=== PATIENT | male | born 1950 | race Caucasian/White ===

== ENCOUNTER 2016-10-08 09:12 | Observation (INO) | payer MEDICARE, BC ==
[2016-10-07 11:10] LABS: BLOOD UREA NITROGEN 32 mg/dL (7-18)
[~2016-10-08] VITALS: Ht 177.8 cm; Wt 104.2 kg
[~2016-10-08 09:12] MED LIST: AMLO10TA2 PO; ASPI-650 PO; ATOR40TA78 PO; GEMF600T3 PO; GLIP10TA13 PO; LOSA100T6 PO; METF10002 PO; MULT-658 PO; OMEP-110 PO; PROP40TA PO
[2016-10-08] MEDS ORDERED: SODIUM CHLORIDE 0.9% 1,000 ML IV ONE (09:45)
[2016-10-08 10:44] LABS: BLOOD UREA NITROGEN 27 mg/dL (7-18)
[2016-10-08] MEDS ORDERED: LIDOCAINE 2%, 20ML ONE ×2 (13:11→14:42)
[2016-10-08] MEDS ORDERED: BIVALIRUDIN 250 MG ONE ×2 (13:11→14:42)
[2016-10-08] MEDS ORDERED: VERAPAMIL 2.5 MG/ML, 2ML ONE ×2 (13:11→14:41)
[2016-10-08] MEDS ORDERED: HEPARIN 1,000 UNITS/ML, 10ML ONE ×2 (13:11→14:42)
[2016-10-08] MEDS ORDERED: FENTANYL PF 100 MCG/2ML ONE ×2 (13:11→14:41)
[2016-10-08] MEDS ORDERED: TICAGRELOR 90 MG TABLET ONE ×2 (13:11→14:41)
[2016-10-08] MEDS ORDERED: MIDAZOLAM 1 MG/ML, 5ML ONE ×2 (13:11→14:41)
[2016-10-08 19:09] VITALS: BP 183/74
[2016-10-08] MEDS: AMLODIPINE 5 MG TABLET PO SCH (20:20)
[2016-10-08] MEDS: TICAGRELOR 90 MG TABLET PO SCH (20:20)
[2016-10-08] MEDS: PROPRANOLOL 40 MG TABLET PO SCH (20:20)
[2016-10-08] MEDS: GEMFIBROZIL 600 MG TABLET PO SCH (20:20)
[2016-10-08 20:28] VITALS: BP 146/78
[2016-10-08] MEDS ORDERED: ATORVASTATIN 40 MG TABLET PO SCH (21:00)
[2016-10-09 01:57] VITALS: BP 147/75
[2016-10-09 05:25] LABS: BLOOD UREA NITROGEN 24 mg/dL (7-18)
[2016-10-09 07:23] VITALS: BP 145/76
[2016-10-09] MEDS ORDERED: OMEPRAZOLE 20 MG CAPSULE.DR PO SCH (07:30)
[2016-10-09] MEDS ORDERED: metFORMIN 500 MG TABLET PO SCH (08:00)
[2016-10-09] MEDS: TICAGRELOR 90 MG TABLET PO SCH (08:09)
[2016-10-09] MEDS: GEMFIBROZIL 600 MG TABLET PO SCH (08:09)
[2016-10-09] MEDS: PROPRANOLOL 40 MG TABLET PO SCH (08:10)
[2016-10-09] MEDS: AMLODIPINE 5 MG TABLET PO SCH (08:10)
[2016-10-09] MEDS ORDERED: MULTIVITAMIN 1 TABLET PO SCH (09:00)
[2016-10-09] MEDS ORDERED: LOSARTAN 50MG TABLET PO SCH (09:00)
[2016-10-09] MEDS ORDERED: ISOSORBIDE MONONITRATE ER 30 MG TABLET PO SCH (09:00)
[2016-10-09] MEDS ORDERED: ASPIRIN 81 MG TABLET EC PO SCH (09:00)
[2016-10-09] MEDS ORDERED: ASPI-621 PO (09:40)
[2016-10-09] MEDS ORDERED: TICA90TA PO (09:40)
== END 2016-10-09 11:20 | disposition home or self-care (01) ==
LOC: CACL 09:12 → 5SO 17:30 → CACL 22:21 → INTOOBSV 22:22 → 5SO 22:22 → UNDODISIN 10-09 11:20
PROVIDERS: ADMIT Internal Medicine Cardiovascular Disease; ATTEND Internal Medicine Cardiovascular Disease
DX: I25.119 Atherosclerotic heart disease of native coronary artery with unspecified angina pectoris (principal); I10 Essential (primary) hypertension; E11.9 Type 2 diabetes mellitus without complications; E78.5 Hyperlipidemia, unspecified; Z95.5 Presence of coronary angioplasty implant and graft
CPT/HCPCS: 36415; 71020; 80048; 82040; 82962; 85014; 85018; 85025; 85610; 85730; 93005; 93458; 93571; 99156; 99157; C1725; C1769; C1874; C1887; C1894; C9600; G0378; J0583; J1644; J2250; J3010; J3490; Q9967

== ENCOUNTER 2018-01-20 08:00 | Outpatient (CLI) | payer MEDICARE, BC ==
[~2018-01-20 08:00] MED LIST changes: -AMLO10TA2 PO; +AMLO10TA6 PO; +ASPI-621 PO; -GEMF600T3 PO; +GEMF600T4 PO; -LOSA100T6 PO; +LOSA100T7 PO; +TICA90TA PO
[2018-01-20] MEDS ORDERED: PIOG30TA67 PO (14:46)
[2018-01-20] MEDS ORDERED: CHOL500015 PO (14:46)
[2018-01-20] MEDS ORDERED: NPH,100V5 SC (14:46)
[2018-01-20] MEDS ORDERED: CLOP75TA PO (14:46)
== END 2018-01-20 17:00 | disposition home or self-care (01) ==
LOC: CVU 08:00
PROVIDERS: ATTEND Thoracic Surgery (Cardiothoracic Vascular Surgery)
DX: Z01.818 Encounter for other preprocedural examination (principal); I25.10 Atherosclerotic heart disease of native coronary artery without angina pectoris; Z95.1 Presence of aortocoronary bypass graft
CPT/HCPCS: 93970

== ENCOUNTER 2018-01-23 03:29 | Inpatient (IN) | payer MEDICARE, BC ==
[2018-01-20 14:56] LABS: BASOPHILS # (AUTO) 0.02 x10^3/uL (0-0.1); BASOPHILS % (AUTO) 0 % (0-1); EOSINOPHILS # (AUTO) 0.06 x10^3/uL (0-0.4); EOSINOPHILS % (AUTO) 1 % (1-7); LYMPHOCYTES # (AUTO) 2.37 x10^3/uL (1-3.4); LYMPHOCYTES % (AUTO) 38 % (22-44); MD NO; MEAN CORPUSCULAR HGB CONC 31.4 g/dL (33.2-36.2); MEAN CORPUSCULAR VOLUME 73.2 fL (81-97); MEAN PLATELET VOLUME 8.4 fL (7.4-10.4); MONOCYTES # (AUTO) 0.45 x10^3/uL (0.2-0.8); MONOCYTES % (AUTO) 7 % (2-9); NEUTROPHILS # (AUTO) 3.41 x10^3/uL (1.8-6.8); NEUTROPHILS % (AUTO) 54 % (42-75); PLATELET COUNT 276 x10^3/uL (130-400); RED BLOOD COUNT 4.98 x10^6/uL (4.38-5.82); RED CELL DISTRIBUTION WIDTH 18.4 % (9.4-14.8)
[2018-01-20 15:08] LABS: ALBUMIN 3.5 g/dL (3.4-5.0); ANION GAP 7 mmol/L (5-15); CHLORIDE 108 mmol/L (98-107)
[2018-01-20 15:12] LABS: ALANINE AMINOTRANSFERASE 20 U/L (12-78); ALKALINE PHOSPHATASE 79 U/L (45-117); BILIRUBIN,TOTAL 0.3 mg/dL (0.2-1.0); CREATININE 1.91 mg/dL (0.7-1.3); TOTAL PROTEIN 8.4 g/dL (6.4-8.2)
[2018-01-20 15:13] LABS: MICROSCOPIC INDICATED
[2018-01-20 15:20] LABS: CULTURE INDICATED? NO
[2018-01-20 15:23] LABS: PROTHROMBIN TIME 10.3 Seconds (9.6-11.5)
[2018-01-20 15:25] LABS: HEMOGLOBIN A1C 7.9 % (4.2-6.3)
[~2018-01-23] VITALS: Ht 177.8 cm; Wt 100.9 kg
[~2018-01-23 03:29] MED LIST changes: +CHOL500015 PO; +CLOP75TA PO; +NPH,100V5 SC; +PIOG30TA67 PO
[2018-01-23] MEDS ORDERED: INSULIN LISPRO 100 UNITS/ML, PEN SQ-INSULIN SCH (04:00)
[2018-01-23] MEDS ORDERED: ALBUMIN HUMAN 5% 500 ML IV PRN (04:00)
[2018-01-23] MEDS ORDERED: CHLORHEXIDINE 15 ML UDC MM SCH (04:00)
[2018-01-23] MEDS ORDERED: ACETAMINOPHEN 325 MG TABLET PO PRN ×2 (04:00→12:00)
[2018-01-23 04:36] VITALS: BP_SYST 158; BP_SYST 174; BP_DIAS 86; BP_DIAS 89
[2018-01-23] MEDS ORDERED: METOPROLOL TARTRATE 25 MG TABLET PO ONE (05:00)
[2018-01-23] MEDS: MUPIROCIN OINT 2%, 22GM TP SCH ×2 (05:27→21:50)
[2018-01-23] MEDS: SODIUM CHLORIDE FLUSH 10ML SYR IVF SCH ×3 (05:27→22:10)
[2018-01-23] MEDS ORDERED: PAPAVERINE 30 MG/ML, 2ML ONE (06:43)
[2018-01-23] MEDS ORDERED: HEPARIN 1,000 UNITS/ML, 10ML ONE (06:43)
[2018-01-23 07:05] VITALS: BP 164/75
[2018-01-23] MEDS ORDERED: POTASSIUM CHLORIDE 80 MEQ, SODIUM BICARBONATE 8.4% 10 MEQ, MAGNESIUM SULFATE 0.5 GM, LI... IV PRN (07:30)
[2018-01-23] MEDS ORDERED: DEXMEDETOMIDINE 200 MCG in SODIUM CHLORIDE 0.9% 48 ML IV SCH (07:30)
[2018-01-23] MEDS ORDERED: MANNITOL PMX 20% 500 ML IVPB PRN (07:30)
[2018-01-23] MEDS ORDERED: PHENYLEPHRINE 10 MG in SODIUM CHLORIDE 0.9% 249 ML IV PRN ×2 (07:30→11:34)
[2018-01-23] MEDS ORDERED: EPINEPHRINE 2 MG in SODIUM CHLORIDE 0.9% 248 ML IV SCH (07:30)
[2018-01-23] MEDS ORDERED: REGULAR INSULIN 62.5 UNITS in SODIUM CHLORIDE 0.9% 249.375 ML IV PRN ×2 (07:30→11:34)
[2018-01-23] MEDS ORDERED: VANCOMYCIN 1,500 MG in SODIUM CHLORIDE 0.9% 250 ML IV PRN (07:30)
[2018-01-23] MEDS ORDERED: MIDAZOLAM 10MG/2 ML ONE (07:34)
[2018-01-23] MEDS ORDERED: SUFentanil 50 MCG/ML, 5ML ONE (07:34)
[2018-01-23] MEDS ORDERED: PROTAMINE SULFATE 10 MG/ML, 25ML ONE ×2 (08:53)
[2018-01-23] MEDS ORDERED: ROCURONIUM 10MG/ML,5ML ONE ×2 (08:53)
[2018-01-23] MEDS ORDERED: AMINOCAPROIC ACID 250 MG/ML, 20ML ONE ×2 (08:53)
[2018-01-23] MEDS ORDERED: VASOPRESSIN 20 UNIT/ML, 1ML ONE (08:53)
[2018-01-23] MEDS ORDERED: PROPOFOL 10 MG/ML, 20ML ONE (08:53)
[2018-01-23] MEDS ORDERED: HEPARIN 1,000 UNITS/ML, 30ML ONE (11:20)
[2018-01-23] MEDS ORDERED: SODIUM BICARB 8.4%, 50ML SYRINGE ONE (11:20)
[2018-01-23] MEDS ORDERED: LIDOCAINE 2% 100MG/5ML SYRINGE ONE (11:20)
[2018-01-23] MEDS ORDERED: ALBUMIN HUMAN 25% 50 ML ONE (11:20)
[2018-01-23] MEDS ORDERED: DOBUTAMINE 250 MG in SODIUM CHLORIDE 0.9% 230 ML IV PRN (11:34)
[2018-01-23] MEDS ORDERED: NITROGLYCERIN/D5W PMX 250 ML IV PRN (11:34)
[2018-01-23] MEDS ORDERED: SODIUM CHLORIDE 0.9% 1,000 ML IV PRN (11:34)
[2018-01-23] MEDS ORDERED: VASOPRESSIN 50 UNIT in SODIUM CHLORIDE 0.9% 247.5 ML IV PRN (11:34)
[2018-01-23] MEDS ORDERED: DEXMEDETOMIDINE 200 MCG in SODIUM CHLORIDE 0.9% 48 ML IV PRN (11:34)
[2018-01-23] MEDS ORDERED: DEXTROSE 50%, 50ML SYRINGE IVPush PRN (12:00)
[2018-01-23] MEDS ORDERED: GLUCAGON 1 MG IM PRN (12:00)
[2018-01-23] MEDS ORDERED: EPINEPHRINE 2 MG in SODIUM CHLORIDE 0.9% 248 ML IV PRN (12:00)
[2018-01-23] MEDS ORDERED: SODIUM BICARB 8.4%, 50ML SYRINGE IV PRN (12:00)
[2018-01-23] MEDS ORDERED: INSULIN REGULAR 100 UNITS/ML, 3ML VIAL IVPush PRN (12:00)
[2018-01-23] MEDS ORDERED: PROCHLORPERAZINE 5 MG/ML, 2ML IVPush PRN (12:00)
[2018-01-23] MEDS: KSCALE TO 4.5 IV SCH ×2 (12:00→18:00)
[2018-01-23] MEDS ORDERED: BISACODYL 10 MG SUPP PR PRN (12:00)
[2018-01-23] MEDS ORDERED: MIDAZOLAM 1 MG/ML, 5ML IVPush PRN (12:00)
[2018-01-23] MEDS ORDERED: LACTATED RINGERS 1,000 ML IV PRN (12:00)
[2018-01-23] MEDS ORDERED: ACETAMINOPHEN 650 MG SUPP PR PRN (12:00)
[2018-01-23] MEDS ORDERED: DEXTROSE 4 GM TAB.CHEW PO PRN (12:00)
[2018-01-23] MEDS ORDERED: BISACODYL 5 MG EC TABLET PO PRN (12:00)
[2018-01-23 12:03] LABS: GLUCOSE BY BLOOD GAS ANALYZER 141 mg/dL (70-110); HEMOGLOBIN BY BLOOD GAS ANALYZ 8.2 g/dL (14.0-18.0); POTASSIUM BY BLOOD GAS ANALYZR 4.6 mmol/L (3.6-5.5)
[2018-01-23 12:25] LABS: INTERNATIONAL NORMALIZED RATIO 1.17 (0.93-1.1)
[2018-01-23] MEDS: MAGNESIUM SULFATE 1 GM in SODIUM CHLORIDE 0.9% 50 ML IVPB SCH (12:42)
[2018-01-23] MEDS: DOCUSATE 100 MG CAPSULE PO SCH ×2 (12:42→21:00)
[2018-01-23] MEDS: morphine SULFATE 10 MG/ML, 1ML IVPush PRN (14:38)
[2018-01-23] MEDS: HYDROcodone/APAP 5/325 TABLET PO PRN (17:10)
[2018-01-23] MEDS: ONDANSETRON 2MG/ML, 2ML IVPush PRN (17:31)
[2018-01-23] MEDS: INSULIN LISPRO 100 UNITS/ML, PEN SQ-INSULIN SCH (21:00)
[2018-01-23] MEDS: CHLORHEXIDINE 15 ML UDC PO SCH (21:49)
[2018-01-23] MEDS: MUPIROCIN OINT 2%, 22GM NAS SCH (21:49)
[2018-01-24] MEDS: morphine SULFATE 10 MG/ML, 1ML IVPush PRN (03:07)
[2018-01-24] MEDS: ONDANSETRON 2MG/ML, 2ML IVPush PRN ×2 (03:14→08:04)
[2018-01-24] MEDS: OXYcodone IR 5MG TABLET PO PRN ×5 (05:36→18:05)
[2018-01-24] MEDS: KSCALE TO 4.5 IV SCH ×2 (06:00)
[2018-01-24 06:35] LABS: BASOPHILS # (AUTO) 0.02 x10^3/uL (0-0.1); BASOPHILS % (AUTO) 0 % (0-1); EOSINOPHILS # (AUTO) 0.02 x10^3/uL (0-0.4); EOSINOPHILS % (AUTO) 0 % (1-7); LYMPHOCYTES # (AUTO) 0.61 x10^3/uL (1-3.4); LYMPHOCYTES % (AUTO) 9 % (22-44); MD NO; MEAN CORPUSCULAR HGB CONC 31.1 g/dL (33.2-36.2); MEAN CORPUSCULAR VOLUME 74.1 fL (81-97); MONOCYTES % (AUTO) 9 % (2-9); NEUTROPHILS # (AUTO) 5.36 x10^3/uL (1.8-6.8); NEUTROPHILS % (AUTO) 81 % (42-75); PLATELET COUNT 194 x10^3/uL (130-400); RED BLOOD COUNT 3.58 x10^6/uL (4.38-5.82); RED CELL DISTRIBUTION WIDTH 18.8 % (9.4-14.8)
[2018-01-24 06:43] LABS: ALBUMIN 2.7 g/dL (3.4-5.0); ANION GAP 11 mmol/L (5-15); CHLORIDE 113 mmol/L (98-107); CREATININE 1.73 mg/dL (0.7-1.3)
[2018-01-24] MEDS ORDERED: VANCOMYCIN 1,500 MG in SODIUM CHLORIDE 0.9% 250 ML IVPB ONE (07:00)
[2018-01-24] MEDS: HYDROcodone/APAP 5/325 TABLET PO PRN ×3 (08:04→20:51)
[2018-01-24] MEDS: INSULIN LISPRO 100 UNITS/ML, PEN SQ-INSULIN SCH ×4 (08:10→21:43)
[2018-01-24] MEDS ORDERED: FUROSEMIDE 20 MG/2 ML ONE (08:18)
[2018-01-24] MEDS ORDERED: SODIUM BICARB 8.4%, 50ML SYRINGE IVPush ONE (08:30)
[2018-01-24] MEDS: LOSARTAN 50MG TABLET PO SCH (08:40)
[2018-01-24] MEDS: OMEPRAZOLE 20 MG CAPSULE.DR PO SCH (08:41)
[2018-01-24] MEDS: ASPIRIN 81 MG TABLET EC PO SCH (08:41)
[2018-01-24] MEDS: METOPROLOL TARTRATE 25 MG TABLET PO/NG SCH ×2 (08:41→21:31)
[2018-01-24] MEDS: DOCUSATE 100 MG CAPSULE PO SCH ×2 (08:41→21:30)
[2018-01-24] MEDS: FUROSEMIDE 20 MG/2 ML IV SCH ×2 (08:42→21:29)
[2018-01-24] MEDS: MUPIROCIN OINT 2%, 22GM NAS SCH ×2 (08:43→21:00)
[2018-01-24] MEDS: SODIUM CHLORIDE FLUSH 10ML SYR IVF SCH ×4 (08:43→21:30)
[2018-01-24] MEDS: CHLORHEXIDINE 15 ML UDC PO SCH ×2 (08:43→21:30)
[2018-01-24] MEDS: GEMFIBROZIL 600 MG TABLET PO SCH ×2 (08:46→21:31)
[2018-01-24] MEDS: MUPIROCIN OINT 2%, 22GM TP SCH ×2 (08:59→21:30)
[2018-01-24] MEDS ORDERED: METOPROLOL TARTRATE 25 MG TABLET PO/NG SCH (09:00)
[2018-01-24] MEDS: MAGNESIUM SULFATE 1 GM in SODIUM CHLORIDE 0.9% 50 ML IVPB SCH (12:09)
[2018-01-24] MEDS: AMLODIPINE 5 MG TABLET PO SCH (15:10)
[2018-01-24] MEDS ORDERED: FUROSEMIDE 20 MG/2 ML IV ONE (16:00)
[2018-01-24 18:38] LABS: ANION GAP 7 mmol/L (5-15); CALCIUM 7.5 mg/dL (8.5-10.1); CHLORIDE 108 mmol/L (98-107); CREATININE 2.28 mg/dL (0.7-1.3)
[2018-01-24] MEDS: ATORVASTATIN 40 MG TABLET PO SCH (21:30)
[2018-01-25] MEDS: OXYcodone IR 5MG TABLET PO PRN ×5 (00:50→21:30)
[2018-01-25] MEDS: HYDROcodone/APAP 5/325 TABLET PO PRN (04:31)
[2018-01-25 04:52] LABS: BASOPHILS # (AUTO) 0.01 x10^3/uL (0-0.1); BASOPHILS % (AUTO) 0 % (0-1); EOSINOPHILS # (AUTO) 0.19 x10^3/uL (0-0.4); EOSINOPHILS % (AUTO) 3 % (1-7); LYMPHOCYTES # (AUTO) 1.06 x10^3/uL (1-3.4); LYMPHOCYTES % (AUTO) 15 % (22-44); MD NO; MEAN CORPUSCULAR HEMOGLOBIN 23.5 pg (27.5-34.5); MEAN CORPUSCULAR HGB CONC 31.6 g/dL (33.2-36.2); MEAN CORPUSCULAR VOLUME 74.4 fL (81-97); MEAN PLATELET VOLUME 8.4 fL (7.4-10.4); MONOCYTES # (AUTO) 0.75 x10^3/uL (0.2-0.8); MONOCYTES % (AUTO) 11 % (2-9); NEUTROPHILS % (AUTO) 71 % (42-75); PLATELET COUNT 174 x10^3/uL (130-400); RED BLOOD COUNT 3.21 x10^6/uL (4.38-5.82); RED CELL DISTRIBUTION WIDTH 18.3 % (9.4-14.8)
[2018-01-25 05:01] LABS: ANION GAP 7 mmol/L (5-15); CALCIUM 8.1 mg/dL (8.5-10.1); CHLORIDE 107 mmol/L (98-107); CREATININE 2.15 mg/dL (0.7-1.3)
[2018-01-25] MEDS: DOCUSATE 100 MG CAPSULE PO SCH ×2 (07:51→21:03)
[2018-01-25] MEDS: ASPIRIN 81 MG TABLET EC PO SCH (07:51)
[2018-01-25] MEDS: AMLODIPINE 5 MG TABLET PO SCH (07:51)
[2018-01-25] MEDS: METOPROLOL TARTRATE 25 MG TABLET PO/NG SCH ×2 (07:52→21:04)
[2018-01-25] MEDS: GEMFIBROZIL 600 MG TABLET PO SCH ×2 (07:52→21:03)
[2018-01-25] MEDS: LOSARTAN 50MG TABLET PO SCH ×2 (07:53→09:06)
[2018-01-25] MEDS: CHLORHEXIDINE 15 ML UDC PO SCH (07:54)
[2018-01-25] MEDS: INSULIN LISPRO 100 UNITS/ML, PEN SQ-INSULIN SCH ×4 (07:55→21:05)
[2018-01-25] MEDS: MUPIROCIN OINT 2%, 22GM NAS SCH ×2 (07:55→21:00)
[2018-01-25] MEDS ORDERED: metFORMIN 500 MG TABLET PO SCH (08:00)
[2018-01-25] MEDS: ENOXAPARIN 40 MG/0.4 ML SQ SCH (08:10)
[2018-01-25] MEDS: OMEPRAZOLE 20 MG CAPSULE.DR PO SCH (08:10)
[2018-01-25] MEDS: SODIUM CHLORIDE FLUSH 10ML SYR IVF SCH ×3 (08:11→21:04)
[2018-01-25] MEDS: MUPIROCIN OINT 2%, 22GM TP SCH (08:29)
[2018-01-25] MEDS ORDERED: FUROSEMIDE 20 MG/2 ML IV ONE (09:00)
[2018-01-25] MEDS ORDERED: METOPROLOL TARTRATE 25 MG TABLET PO/NG SCH (09:00)
[2018-01-25] MEDS: MAGNESIUM SULFATE 1 GM in SODIUM CHLORIDE 0.9% 50 ML IVPB SCH (11:00)
[2018-01-25] MEDS ORDERED: ALBUMIN HUMAN 25% 100 ML IV STA (13:42)
[2018-01-25] MEDS ORDERED: FUROSEMIDE 20 MG/2 ML IV STA (13:42)
[2018-01-25] MEDS ORDERED: BENZOCAINE 20% SPRAY 0.5ML TP ONE (17:00)
[2018-01-25] MEDS: ATORVASTATIN 40 MG TABLET PO SCH (21:03)
[2018-01-25] MEDS: FUROSEMIDE 20 MG/2 ML IV SCH (21:04)
[2018-01-26 04:59] LABS: BASOPHILS # (AUTO) 0.01 x10^3/uL (0-0.1); BASOPHILS % (AUTO) 0 % (0-1); EOSINOPHILS # (AUTO) 0.14 x10^3/uL (0-0.4); EOSINOPHILS % (AUTO) 3 % (1-7); LYMPHOCYTES # (AUTO) 0.84 x10^3/uL (1-3.4); LYMPHOCYTES % (AUTO) 20 % (22-44); MD NO; MEAN CORPUSCULAR HEMOGLOBIN 23.9 pg (27.5-34.5); MEAN CORPUSCULAR HGB CONC 32.4 g/dL (33.2-36.2); MEAN CORPUSCULAR VOLUME 73.7 fL (81-97); MEAN PLATELET VOLUME 8.9 fL (7.4-10.4); MONOCYTES # (AUTO) 0.36 x10^3/uL (0.2-0.8); MONOCYTES % (AUTO) 9 % (2-9); NEUTROPHILS # (AUTO) 2.77 x10^3/uL (1.8-6.8); NEUTROPHILS % (AUTO) 67 % (42-75); PLATELET COUNT 167 x10^3/uL (130-400); RED BLOOD COUNT 2.97 x10^6/uL (4.38-5.82); RED CELL DISTRIBUTION WIDTH 17.8 % (9.4-14.8)
[2018-01-26] MEDS: OXYcodone IR 5MG TABLET PO PRN ×2 (05:05→12:01)
[2018-01-26 05:07] LABS: CALCIUM 8.3 mg/dL (8.5-10.1); CHLORIDE 103 mmol/L (98-107)
[2018-01-26 05:11] LABS: ANION GAP 7 mmol/L (5-15)
[2018-01-26] MEDS: INSULIN LISPRO 100 UNITS/ML, PEN SQ-INSULIN SCH ×4 (07:00→20:26)
[2018-01-26 09:54] VITALS: BP 119/48
[2018-01-26 10:15] VITALS: BP 125/49
[2018-01-26] MEDS: METOPROLOL TARTRATE 25 MG TABLET PO/NG SCH ×2 (11:59→20:26)
[2018-01-26] MEDS: OMEPRAZOLE 20 MG CAPSULE.DR PO SCH (11:59)
[2018-01-26] MEDS: CLOPIDOGREL 75 MG TABLET PO SCH (11:59)
[2018-01-26 12:00] VITALS: BP 128/48
[2018-01-26] MEDS: ASPIRIN 81 MG TABLET EC PO SCH (12:00)
[2018-01-26] MEDS: AMLODIPINE 5 MG TABLET PO SCH (12:00)
[2018-01-26] MEDS: LOSARTAN 50MG TABLET PO SCH (12:00)
[2018-01-26] MEDS: ENOXAPARIN 40 MG/0.4 ML SQ SCH (12:01)
[2018-01-26] MEDS: DOCUSATE 100 MG CAPSULE PO SCH ×2 (12:01→20:25)
[2018-01-26] MEDS: GEMFIBROZIL 600 MG TABLET PO SCH ×2 (12:02→20:25)
[2018-01-26] MEDS: SODIUM CHLORIDE FLUSH 10ML SYR IVF SCH ×2 (12:03→20:24)
[2018-01-26] MEDS: MUPIROCIN OINT 2%, 22GM NAS SCH ×2 (12:03→20:24)
[2018-01-26] MEDS: METOCLOPRAMIDE 5 MG/ML, 2ML IVPush SCH ×3 (12:25→23:49)
[2018-01-26 13:00] VITALS: BP 120/47
[2018-01-26 13:15] VITALS: BP 120/47
[2018-01-26 15:00] VITALS: BP 143/56
[2018-01-26] MEDS: FUROSEMIDE 20 MG/2 ML IV SCH ×2 (16:36→17:00)
[2018-01-26] MEDS: SIMETHICONE 125 MG CHEW TAB PO SCH ×3 (16:36→20:25)
[2018-01-26] MEDS: ATORVASTATIN 40 MG TABLET PO SCH (20:25)
[2018-01-27] MEDS: OXYcodone IR 5MG TABLET PO PRN ×2 (03:12→07:06)
[2018-01-27 03:36] LABS: BASOPHILS % (AUTO) 0 % (0-1); EOSINOPHILS # (AUTO) 0.15 x10^3/uL (0-0.4); EOSINOPHILS % (AUTO) 3 % (1-7); LYMPHOCYTES # (AUTO) 0.82 x10^3/uL (1-3.4); LYMPHOCYTES % (AUTO) 17 % (22-44); MD NO; MEAN CORPUSCULAR HEMOGLOBIN 24.4 pg (27.5-34.5); MEAN CORPUSCULAR HGB CONC 32.4 g/dL (33.2-36.2); MEAN CORPUSCULAR VOLUME 75.3 fL (81-97); MEAN PLATELET VOLUME 8.8 fL (7.4-10.4); MONOCYTES # (AUTO) 0.44 x10^3/uL (0.2-0.8); MONOCYTES % (AUTO) 9 % (2-9); NEUTROPHILS # (AUTO) 3.49 x10^3/uL (1.8-6.8); NEUTROPHILS % (AUTO) 71 % (42-75); PLATELET COUNT 187 x10^3/uL (130-400); RED BLOOD COUNT 3.75 x10^6/uL (4.38-5.82); RED CELL DISTRIBUTION WIDTH 18.1 % (9.4-14.8)
[2018-01-27 03:38] LABS: ANION GAP 10 mmol/L (5-15); CALCIUM 8.2 mg/dL (8.5-10.1); CHLORIDE 102 mmol/L (98-107); CREATININE 1.58 mg/dL (0.7-1.3)
[2018-01-27] MEDS: INSULIN LISPRO 100 UNITS/ML, PEN SQ-INSULIN SCH ×4 (07:00→22:37)
[2018-01-27] MEDS: METOPROLOL TARTRATE 25 MG TABLET PO/NG SCH ×2 (08:25→20:30)
[2018-01-27] MEDS: DOCUSATE 100 MG CAPSULE PO SCH (08:26)
[2018-01-27] MEDS: LOSARTAN 50MG TABLET PO SCH (08:26)
[2018-01-27] MEDS: GEMFIBROZIL 600 MG TABLET PO SCH ×2 (08:26→20:43)
[2018-01-27] MEDS: SIMETHICONE 125 MG CHEW TAB PO SCH ×2 (08:27→11:39)
[2018-01-27] MEDS: FUROSEMIDE 20 MG/2 ML IV SCH ×2 (08:27→17:00)
[2018-01-27] MEDS: OMEPRAZOLE 20 MG CAPSULE.DR PO SCH (08:27)
[2018-01-27] MEDS: AMLODIPINE 5 MG TABLET PO SCH (08:27)
[2018-01-27] MEDS: METOCLOPRAMIDE 5 MG/ML, 2ML IVPush SCH (08:29)
[2018-01-27] MEDS: SODIUM CHLORIDE FLUSH 10ML SYR IVF SCH ×2 (08:34→20:43)
[2018-01-27] MEDS ORDERED: ALBUTEROL/IPRATROPIUM 2.5MG/0.5MG, 3 ML ONE (08:54)
[2018-01-27] MEDS: MUPIROCIN OINT 2%, 22GM NAS SCH ×2 (09:00→20:44)
[2018-01-27] MEDS ORDERED: AMIODARONE 50 MG/ML, 3ML IVPush STA (09:37)
[2018-01-27] MEDS ORDERED: AMIODARONE 150 MG in DEXTROSE 5% 100 ML IV ONE ×2 (10:00→13:00)
[2018-01-27] MEDS: AMIODARONE 900 MG in DEXTROSE 5% 482 ML IV PRN (10:01)
[2018-01-27] MEDS: FILTER 0.22 MICRON FOR AMIODARONE IV PRN (10:01)
[2018-01-27] MEDS: ASPIRIN 81 MG TABLET EC PO SCH (11:38)
[2018-01-27] MEDS: CLOPIDOGREL 75 MG TABLET PO SCH (11:38)
[2018-01-27] MEDS: ENOXAPARIN 40 MG/0.4 ML SQ SCH (11:38)
[2018-01-27] MEDS ORDERED: FENTANYL PF 100 MCG/2ML ONE ×2 (13:12→14:02)
[2018-01-27] MEDS ORDERED: DOPAMINE/D5W PMX 250 ML IV PRN (14:00)
[2018-01-27] MEDS ORDERED: PROPOFOL 100 ML IV PRN (14:07)
[2018-01-27] MEDS: NOREPINEPHRINE 4 MG in SODIUM CHLORIDE 0.9% 246 ML IV PRN (14:16)
[2018-01-27] MEDS: FENTANYL PF 100 MCG/2ML IVPush PRN (14:21)
[2018-01-27] MEDS ORDERED: DEXTROSE 50%, 50ML SYRINGE IVPush PRN (14:30)
[2018-01-27] MEDS ORDERED: SENNA/DOCUSATE TABLET NG PRN (14:30)
[2018-01-27] MEDS ORDERED: DEXTROSE 4 GM TAB.CHEW PO PRN (14:30)
[2018-01-27] MEDS ORDERED: PROPOFOL 10 MG/ML, 20ML IV ONE (14:30)
[2018-01-27] MEDS ORDERED: GLUCAGON 1 MG IM PRN (14:30)
[2018-01-27] MEDS ORDERED: PHARMACY MAY ADJ FOR RENAL FX MC SCH (14:30)
[2018-01-27] MEDS ORDERED: SENNOSIDES 8.8 MG/5 ML ORAL SOL NG PRN (14:30)
[2018-01-27] MEDS ORDERED: LORazepam 2 MG/ML, 1ML IVPush PRN (14:30)
[2018-01-27] MEDS ORDERED: LIDOCAINE-MPF 1%, 5ML ONE (14:33)
[2018-01-27] MEDS ORDERED: ETOMIDATE 40 MG/20 ML ONE (15:19)
[2018-01-27] MEDS ORDERED: ROCURONIUM 10MG/ML,5ML ONE (15:19)
[2018-01-27] MEDS ORDERED: VECURONIUM 10 MG ONE (15:19)
[2018-01-27] MEDS ORDERED: PROPOFOL 10 MG/ML, 100ML IV ONE (15:19)
[2018-01-27] MEDS ORDERED: DOPAMINE/D5W PMX 400 MG/250 ML ONE (15:20)
[2018-01-27] MEDS ORDERED: METOCLOPRAMIDE 5 MG/ML, 2ML IVPush SCH (16:00)
[2018-01-27] MEDS ORDERED: SODIUM CHLORIDE 0.9%, 250ML IVBOLUS ONE (16:30)
[2018-01-27] MEDS: PROPOFOL 100 ML IV PRN (19:22)
[2018-01-27] MEDS: ATORVASTATIN 40 MG TABLET PO SCH (20:43)
[2018-01-27] MEDS: DOCUSATE 50 MG/5 ML, 10ML UDC NG SCH (20:43)
[2018-01-28] MEDS: PROPOFOL 100 ML IV PRN ×6 (02:32→23:20)
[2018-01-28] MEDS: AMIODARONE 900 MG in DEXTROSE 5% 482 ML IV PRN ×2 (02:32→02:52)
[2018-01-28] MEDS: FILTER 0.22 MICRON FOR AMIODARONE IV PRN (02:32)
[2018-01-28] MEDS: FENTANYL PF 100 MCG/2ML IVPush PRN (04:05)
[2018-01-28 04:27] LABS: BASOPHILS # (AUTO) 0.05 x10^3/uL (0-0.1); BASOPHILS % (AUTO) 1 % (0-1); EOSINOPHILS # (AUTO) 0.14 x10^3/uL (0-0.4); EOSINOPHILS % (AUTO) 3 % (1-7); LYMPHOCYTES # (AUTO) 1.09 x10^3/uL (1-3.4); LYMPHOCYTES % (AUTO) 23 % (22-44); MD NO; MEAN CORPUSCULAR HEMOGLOBIN 24.1 pg (27.5-34.5); MEAN CORPUSCULAR HGB CONC 32.4 g/dL (33.2-36.2); MEAN CORPUSCULAR VOLUME 74.3 fL (81-97); MEAN PLATELET VOLUME 8.9 fL (7.4-10.4); MONOCYTES # (AUTO) 0.47 x10^3/uL (0.2-0.8); MONOCYTES % (AUTO) 10 % (2-9); NEUTROPHILS # (AUTO) 3.05 x10^3/uL (1.8-6.8); NEUTROPHILS % (AUTO) 64 % (42-75); PLATELET COUNT 202 x10^3/uL (130-400); RED BLOOD COUNT 3.57 x10^6/uL (4.38-5.82); RED CELL DISTRIBUTION WIDTH 18.1 % (9.4-14.8)
[2018-01-28 04:38] LABS: ANION GAP 12 mmol/L (5-15); CHLORIDE 101 mmol/L (98-107)
[2018-01-28] MEDS: INSULIN LISPRO 100 UNITS/ML, PEN SQ-INSULIN SCH ×4 (05:42→21:21)
[2018-01-28] MEDS: MUPIROCIN OINT 2%, 22GM NAS SCH (09:00)
[2018-01-28] MEDS: METOPROLOL TARTRATE 25 MG TABLET PO/NG SCH ×2 (09:36→21:19)
[2018-01-28] MEDS: DOCUSATE 50 MG/5 ML, 10ML UDC NG SCH ×2 (09:36→21:18)
[2018-01-28] MEDS: GEMFIBROZIL 600 MG TABLET PO SCH ×2 (09:36→21:18)
[2018-01-28] MEDS: ASPIRIN 81 MG TABLET EC PO SCH (09:36)
[2018-01-28] MEDS: FUROSEMIDE 20 MG/2 ML IV SCH ×2 (09:36→16:45)
[2018-01-28] MEDS: CLOPIDOGREL 75 MG TABLET PO SCH (09:36)
[2018-01-28] MEDS: ENOXAPARIN 40 MG/0.4 ML SQ SCH (09:37)
[2018-01-28] MEDS: SODIUM CHLORIDE FLUSH 10ML SYR IVF SCH ×2 (09:37→16:43)
[2018-01-28] MEDS: ATORVASTATIN 40 MG TABLET PO SCH (21:18)
[2018-01-28] MEDS: OXYcodone IR 5MG TABLET PO PRN ×2 (23:20→23:49)
[2018-01-29] MEDS: PROPOFOL 100 ML IV PRN ×5 (01:56→20:19)
[2018-01-29 05:07] LABS: MEAN CORPUSCULAR HEMOGLOBIN 24.4 pg (27.5-34.5); MEAN CORPUSCULAR VOLUME 73.8 fL (81-97); MEAN PLATELET VOLUME 8.9 fL (7.4-10.4); PLATELET COUNT 202 x10^3/uL (130-400); RED BLOOD COUNT 3.56 x10^6/uL (4.38-5.82); RED CELL DISTRIBUTION WIDTH 18.2 % (9.4-14.8)
[2018-01-29 05:20] LABS: CHLORIDE 100 mmol/L (98-107)
[2018-01-29] MEDS: FENTANYL PF 100 MCG/2ML IVPush PRN (05:20)
[2018-01-29 05:25] LABS: ANION GAP 11 mmol/L (5-15); CALCIUM 8.3 mg/dL (8.5-10.1); CREATININE 2.31 mg/dL (0.7-1.3)
[2018-01-29 05:29] LABS: BASOPHILS # (AUTO) 0.02 x10^3/uL (0-0.1); BASOPHILS % (AUTO) 0 % (0-1); EOSINOPHILS # (AUTO) 0.15 x10^3/uL (0-0.4); EOSINOPHILS % (AUTO) 2 % (1-7); LYMPHOCYTES # (AUTO) 0.62 x10^3/uL (1-3.4); LYMPHOCYTES % (AUTO) 10 % (22-44); MD SCAN; MONOCYTES # (AUTO) 0.26 x10^3/uL (0.2-0.8); MONOCYTES % (AUTO) 4 % (2-9); NEUTROPHILS # (AUTO) 5.09 x10^3/uL (1.8-6.8); NEUTROPHILS % (AUTO) 83 % (42-75)
[2018-01-29] MEDS: FILTER 0.22 MICRON FOR AMIODARONE IV PRN (06:04)
[2018-01-29] MEDS: AMIODARONE 900 MG in DEXTROSE 5% 482 ML IV PRN (06:05)
[2018-01-29] MEDS: ENALAPRILAT 1.25 MG/ML, 2ML IV PRN (07:37)
[2018-01-29] MEDS: SODIUM CHLORIDE FLUSH 10ML SYR IVF SCH ×2 (07:37→21:00)
[2018-01-29] MEDS: FUROSEMIDE 20 MG/2 ML IV SCH ×2 (08:38→17:04)
[2018-01-29] MEDS: GEMFIBROZIL 600 MG TABLET PO SCH ×2 (08:38→21:25)
[2018-01-29] MEDS: ASPIRIN 81 MG TABLET EC PO SCH (08:38)
[2018-01-29] MEDS: DOCUSATE 50 MG/5 ML, 10ML UDC NG SCH ×2 (08:38→21:24)
[2018-01-29] MEDS: ENOXAPARIN 40 MG/0.4 ML SQ SCH (08:38)
[2018-01-29] MEDS: CLOPIDOGREL 75 MG TABLET PO SCH (08:38)
[2018-01-29] MEDS: METOPROLOL TARTRATE 25 MG TABLET PO/NG SCH ×2 (08:38→21:25)
[2018-01-29] MEDS: INSULIN LISPRO 100 UNITS/ML, PEN SQ-INSULIN SCH ×4 (08:40→21:31)
[2018-01-29] MEDS: AMIODARONE 200 MG TABLET PO SCH ×2 (09:30→21:25)
[2018-01-29] MEDS: PIPERACILLIN/TAZO/PMX 3.375GM 50 ML IV SCH ×3 (13:38→23:34)
[2018-01-29] MEDS: ATORVASTATIN 40 MG TABLET PO SCH (21:25)
[2018-01-29] MEDS: OXYcodone IR 5MG TABLET PO PRN (21:27)
[2018-01-30] MEDS: PROPOFOL 100 ML IV PRN (01:48)
[2018-01-30 04:54] LABS: BASOPHILS # (AUTO) 0.01 x10^3/uL (0-0.1); BASOPHILS % (AUTO) 0 % (0-1); EOSINOPHILS # (AUTO) 0.16 x10^3/uL (0-0.4); EOSINOPHILS % (AUTO) 2 % (1-7); LYMPHOCYTES # (AUTO) 0.84 x10^3/uL (1-3.4); LYMPHOCYTES % (AUTO) 11 % (22-44); MD NO; MEAN CORPUSCULAR HEMOGLOBIN 24.1 pg (27.5-34.5); MEAN CORPUSCULAR HGB CONC 32.4 g/dL (33.2-36.2); MEAN CORPUSCULAR VOLUME 74.4 fL (81-97); MEAN PLATELET VOLUME 8.7 fL (7.4-10.4); MONOCYTES # (AUTO) 0.39 x10^3/uL (0.2-0.8); MONOCYTES % (AUTO) 5 % (2-9); NEUTROPHILS # (AUTO) 6.33 x10^3/uL (1.8-6.8); NEUTROPHILS % (AUTO) 82 % (42-75); PLATELET COUNT 208 x10^3/uL (130-400); RED BLOOD COUNT 3.27 x10^6/uL (4.38-5.82); RED CELL DISTRIBUTION WIDTH 19.1 % (9.4-14.8)
[2018-01-30 05:00] LABS: CHLORIDE 98 mmol/L (98-107)
[2018-01-30 05:03] LABS: ANION GAP 13 mmol/L (5-15); CALCIUM 8.1 mg/dL (8.5-10.1); CREATININE 2.61 mg/dL (0.7-1.3); TRIGLYCERIDES 323 mg/dL (50-200)
[2018-01-30] MEDS: PIPERACILLIN/TAZO/PMX 3.375GM 50 ML IV SCH (05:40)
[2018-01-30] MEDS: INSULIN LISPRO 100 UNITS/ML, PEN SQ-INSULIN SCH ×4 (08:35→20:50)
[2018-01-30] MEDS: DEXMEDETOMIDINE 1,000 MCG in SODIUM CHLORIDE 0.9% 240 ML IV PRN (10:00)
[2018-01-30] MEDS: CLOPIDOGREL 75 MG TABLET PO SCH (10:18)
[2018-01-30] MEDS: DOCUSATE 50 MG/5 ML, 10ML UDC NG SCH ×2 (10:18→20:46)
[2018-01-30] MEDS: FUROSEMIDE 20 MG/2 ML IV SCH ×3 (10:18→20:47)
[2018-01-30] MEDS: METOPROLOL TARTRATE 25 MG TABLET PO/NG SCH ×2 (10:18→20:46)
[2018-01-30] MEDS: ASPIRIN 81 MG TABLET EC PO SCH (10:18)
[2018-01-30] MEDS: FAMOTIDINE 20 MG/2 ML IVPush SCH (10:18)
[2018-01-30] MEDS: SODIUM CHLORIDE FLUSH 10ML SYR IVF SCH ×2 (10:19→20:47)
[2018-01-30] MEDS: AMIODARONE 200 MG TABLET PO SCH ×2 (10:19→20:46)
[2018-01-30] MEDS: GEMFIBROZIL 600 MG TABLET PO SCH (10:19)
[2018-01-30] MEDS: ENOXAPARIN 30 MG/0.3 ML SQ SCH (10:19)
[2018-01-30] MEDS ORDERED: AMPICILLIN/SULBACTAM 3 GM in SODIUM CHLORIDE 0.9% 100 ML IV SCH (11:00)
[2018-01-30 12:30] LABS: ABSOLUTE RETICS # 0.086 x10^6/uL (0.5-1.5); RED BLOOD COUNT 3.16 x10^6/uL (4.38-5.82); RETICULOCYTE COUNT % 2.73 % (0.5-1.5)
[2018-01-30 12:31] LABS: CALCIUM 8.2 mg/dL (8.5-10.1)
[2018-01-30 12:36] LABS: MICROSCOPIC INDICATED
[2018-01-30 12:40] LABS: POTASSIUM,URINE RANDOM 31 mmol/L; SODIUM,URINE RANDOM 27 mmol/L; TOTAL PROTEIN,URINE RANDOM 107 mg/dL (0-12)
[2018-01-30 12:45] LABS: CHLORIDE,URINE RANDOM < 10 mmol/L
[2018-01-30 13:10] LABS: OSMOLALITY,URINE 370 mOsm/kg (500-850)
[2018-01-30] MEDS: ATORVASTATIN 40 MG TABLET PO SCH (20:47)
[2018-01-31] MEDS: AMPICILLIN/SULBACTAM 3 GM in SODIUM CHLORIDE 0.9% 100 ML IV SCH ×2 (01:42→13:35)
[2018-01-31 05:00] LABS: ALBUMIN 1.5 g/dL (3.4-5.0); ANION GAP 12 mmol/L (5-15); CALCIUM 7.9 mg/dL (8.5-10.1); CHLORIDE 100 mmol/L (98-107)
[2018-01-31 05:03] LABS: % IRON SATURATION 9 % (20-55); ALANINE AMINOTRANSFERASE 44 U/L (12-78); ALKALINE PHOSPHATASE 86 U/L (45-117); BILIRUBIN,TOTAL 0.2 mg/dL (0.2-1.0); CREATININE 2.64 mg/dL (0.7-1.3); IRON LEVEL 15 mcg/dL (65-175); TOTAL IRON BINDING CAPACITY 162 mcg/dL (250-450); TOTAL PROTEIN 6.2 g/dL (6.4-8.2)
[2018-01-31 05:06] LABS: BASOPHILS # (AUTO) 0.01 x10^3/uL (0-0.1); BASOPHILS % (AUTO) 0 % (0-1); EOSINOPHILS # (AUTO) 0.18 x10^3/uL (0-0.4); EOSINOPHILS % (AUTO) 2 % (1-7); LYMPHOCYTES # (AUTO) 0.72 x10^3/uL (1-3.4); LYMPHOCYTES % (AUTO) 9 % (22-44); MD NO; MEAN CORPUSCULAR HEMOGLOBIN 24.2 pg (27.5-34.5); MEAN CORPUSCULAR HGB CONC 32.4 g/dL (33.2-36.2); MEAN CORPUSCULAR VOLUME 74.7 fL (81-97); MONOCYTES % (AUTO) 5 % (2-9); NEUTROPHILS # (AUTO) 6.36 x10^3/uL (1.8-6.8); NEUTROPHILS % (AUTO) 83 % (42-75); PLATELET COUNT 228 x10^3/uL (130-400); RED CELL DISTRIBUTION WIDTH 18.9 % (9.4-14.8)
[2018-01-31] MEDS: DEXMEDETOMIDINE 1,000 MCG in SODIUM CHLORIDE 0.9% 240 ML IV PRN (06:06)
[2018-01-31] MEDS: FUROSEMIDE 20 MG/2 ML IV SCH (08:26)
[2018-01-31] MEDS: ENOXAPARIN 30 MG/0.3 ML SQ SCH (08:26)
[2018-01-31] MEDS: INSULIN LISPRO 100 UNITS/ML, PEN SQ-INSULIN SCH ×4 (08:26→20:51)
[2018-01-31] MEDS: CLOPIDOGREL 75 MG TABLET PO SCH (08:26)
[2018-01-31] MEDS: AMIODARONE 200 MG TABLET PO SCH ×2 (08:27→20:16)
[2018-01-31] MEDS: FAMOTIDINE 20 MG/2 ML IVPush SCH (08:27)
[2018-01-31] MEDS: METOPROLOL TARTRATE 25 MG TABLET PO/NG SCH ×2 (08:27→20:17)
[2018-01-31] MEDS: DOCUSATE 50 MG/5 ML, 10ML UDC NG SCH ×2 (08:27→15:05)
[2018-01-31] MEDS ORDERED: DARBEPOETIN 60 MCG/ML SQ SCH (08:30)
[2018-01-31] MEDS ORDERED: IRON SUCROSE COMPLEX 100MG/5ML IV SCH (09:00)
[2018-01-31] MEDS: SODIUM CHLORIDE FLUSH 10ML SYR IVF SCH ×2 (09:00→20:18)
[2018-01-31] MEDS: ASPIRIN 81 MG TABLET CHEW PO SCH ×2 (09:00→09:27)
[2018-01-31] MEDS: FUROSEMIDE 40 MG/4 ML IV SCH ×3 (09:00→22:19)
[2018-01-31] MEDS: FENTANYL PF 100 MCG/2ML IVPush PRN ×2 (09:26→15:17)
[2018-01-31] MEDS: ERGOCALCIFEROL 50,000 UNIT CAPSULE PO SCH (09:27)
[2018-01-31] MEDS: IRON SUCROSE COMPLEX 100MG/5ML IV SCH (09:27)
[2018-01-31] MEDS: CALCITRIOL 0.25 MCG CAPSULE PO SCH (09:28)
[2018-01-31] MEDS: ALBUMIN HUMAN 25% 100 ML IV SCH ×3 (10:40→20:16)
[2018-01-31] MEDS: DARBEPOETIN 100 MCG/ML SQ SCH (12:37)
[2018-01-31] MEDS: ENALAPRILAT 1.25 MG/ML, 2ML IV PRN ×2 (14:29→20:00)
[2018-01-31] MEDS ORDERED: ALBUTEROL/IPRATROPIUM 2.5MG/0.5MG, 3 ML ONE (18:14)
[2018-01-31] MEDS: ATORVASTATIN 40 MG TABLET PO SCH (20:16)
[2018-01-31] MEDS ORDERED: hydrALAzine 20 MG/ML, 1ML IV PRN (21:00)
[2018-02-01] MEDS: FENTANYL PF 100 MCG/2ML IVPush PRN ×4 (01:23→10:25)
[2018-02-01] MEDS: AMPICILLIN/SULBACTAM 3 GM in SODIUM CHLORIDE 0.9% 100 ML IV SCH ×3 (01:24→18:29)
[2018-02-01 04:38] LABS: BASOPHILS # (AUTO) 0.02 x10^3/uL (0-0.1); BASOPHILS % (AUTO) 0 % (0-1); EOSINOPHILS # (AUTO) 0.06 x10^3/uL (0-0.4); EOSINOPHILS % (AUTO) 1 % (1-7); LYMPHOCYTES # (AUTO) 0.63 x10^3/uL (1-3.4); LYMPHOCYTES % (AUTO) 7 % (22-44); MD NO; MEAN CORPUSCULAR HEMOGLOBIN 23.6 pg (27.5-34.5); MEAN CORPUSCULAR HGB CONC 32.1 g/dL (33.2-36.2); MEAN CORPUSCULAR VOLUME 73.7 fL (81-97); MEAN PLATELET VOLUME 9.2 fL (7.4-10.4); MONOCYTES # (AUTO) 0.51 x10^3/uL (0.2-0.8); MONOCYTES % (AUTO) 6 % (2-9); NEUTROPHILS # (AUTO) 7.95 x10^3/uL (1.8-6.8); NEUTROPHILS % (AUTO) 87 % (42-75); PLATELET COUNT 248 x10^3/uL (130-400); RED BLOOD COUNT 3.22 x10^6/uL (4.38-5.82); RED CELL DISTRIBUTION WIDTH 18.6 % (9.4-14.8)
[2018-02-01 04:45] LABS: ALANINE AMINOTRANSFERASE 41 U/L (12-78); ALBUMIN 2.5 g/dL (3.4-5.0); ANION GAP 15 mmol/L (5-15); CALCIUM 8.4 mg/dL (8.5-10.1); CHLORIDE 102 mmol/L (98-107); CREATININE 2.54 mg/dL (0.7-1.3)
[2018-02-01 04:47] LABS: ALKALINE PHOSPHATASE 85 U/L (45-117); BILIRUBIN,TOTAL 0.4 mg/dL (0.2-1.0); TOTAL PROTEIN 6.9 g/dL (6.4-8.2)
[2018-02-01] MEDS: ALBUTEROL/IPRATROPIUM 2.5MG/0.5MG, 3 ML INLINE SCH ×5 (06:16→22:30)
[2018-02-01] MEDS: PROPOFOL 100 ML IV PRN ×5 (06:19→19:21)
[2018-02-01] MEDS ORDERED: LIDOCAINE-MPF 1%, 2ML ENDO PRN (06:30)
[2018-02-01] MEDS ORDERED: PHARMACY MAY ADJ FOR RENAL FX MC SCH (06:30)
[2018-02-01] MEDS ORDERED: SENNA/DOCUSATE TABLET NG PRN (06:30)
[2018-02-01] MEDS ORDERED: SENNOSIDES 8.8 MG/5 ML ORAL SOL NG PRN (06:30)
[2018-02-01] MEDS ORDERED: LACTULOSE 20 GM/30 ML UDC NG PRN (06:30)
[2018-02-01] MEDS ORDERED: BISACODYL 10 MG SUPP PR PRN (06:30)
[2018-02-01] MEDS ORDERED: NOREPINEPHRINE 1 MG/ML, 4ML ONE (07:41)
[2018-02-01] MEDS: INSULIN LISPRO 100 UNITS/ML, PEN SQ-INSULIN SCH ×3 (07:48→18:36)
[2018-02-01] MEDS ORDERED: PROPOFOL 10 MG/ML, 100ML IV ONE (08:00)
[2018-02-01] MEDS ORDERED: ROCURONIUM 10 MG/ML,10ML ONE (08:00)
[2018-02-01] MEDS ORDERED: MIDAZOLAM 1 MG/ML, 5ML ONE (08:00)
[2018-02-01] MEDS: IRON SUCROSE COMPLEX 100MG/5ML IV SCH (08:20)
[2018-02-01] MEDS: FAMOTIDINE 20 MG/2 ML IVPush SCH (08:20)
[2018-02-01] MEDS: DOCUSATE 50 MG/5 ML, 10ML UDC NG SCH ×2 (08:21→21:32)
[2018-02-01] MEDS: AMIODARONE 200 MG TABLET PO SCH ×2 (08:21→21:32)
[2018-02-01] MEDS: CALCITRIOL 0.25 MCG CAPSULE PO SCH (08:21)
[2018-02-01] MEDS: CLOPIDOGREL 75 MG TABLET PO SCH (08:21)
[2018-02-01] MEDS: ASPIRIN 81 MG TABLET CHEW PO SCH (08:21)
[2018-02-01] MEDS: FUROSEMIDE 40 MG/4 ML IV SCH ×3 (08:21→21:19)
[2018-02-01] MEDS: METOPROLOL TARTRATE 25 MG TABLET PO/NG SCH (08:21)
[2018-02-01] MEDS: ENOXAPARIN 30 MG/0.3 ML SQ SCH (08:22)
[2018-02-01] MEDS: NOREPINEPHRINE 4 MG in SODIUM CHLORIDE 0.9% 246 ML IV PRN (08:23)
[2018-02-01] MEDS: SODIUM CHLORIDE FLUSH 10ML SYR IVF SCH ×2 (08:23→21:32)
[2018-02-01] MEDS: KSCALE TO 4.5 IV SCH ×3 (08:30→22:36)
[2018-02-01] MEDS ORDERED: FUROSEMIDE 100 MG in SODIUM CHLORIDE 0.9% 90 ML IV SCH (08:30)
[2018-02-01 10:31] VITALS: BP 97/40
[2018-02-01 10:45] VITALS: BP 127/44
[2018-02-01 12:26] VITALS: BP 122/46
[2018-02-01 15:30] VITALS: BP 121/39
[2018-02-01 15:42] VITALS: BP 124/40
[2018-02-01] MEDS ORDERED: FUROSEMIDE 40 MG/4 ML IV ONE (16:00)
[2018-02-01] MEDS ORDERED: METOLAZONE 5 MG TABLET PO ONE (16:00)
[2018-02-01 16:24] VITALS: BP 126/40
[2018-02-01] MEDS: INSULIN GLARGINE 100 UNITS/ML, PEN SQ-INSULIN SCH (18:37)
[2018-02-01] MEDS: FUROSEMIDE 100 MG in SODIUM CHLORIDE 0.9% 90 ML IV SCH (19:21)
[2018-02-01] MEDS: ATORVASTATIN 40 MG TABLET PO SCH (21:32)
[2018-02-02] MEDS: AMPICILLIN/SULBACTAM 3 GM in SODIUM CHLORIDE 0.9% 100 ML IV SCH ×4 (01:05→19:33)
[2018-02-02] MEDS: FUROSEMIDE 100 MG in SODIUM CHLORIDE 0.9% 90 ML IV SCH ×5 (01:11→22:42)
[2018-02-02] MEDS: INSULIN LISPRO 100 UNITS/ML, PEN SQ-INSULIN SCH ×4 (01:12→19:59)
[2018-02-02] MEDS: METOPROLOL TARTRATE 25 MG TABLET PO/NG SCH ×3 (01:13→20:52)
[2018-02-02] MEDS: PROPOFOL 100 ML IV PRN ×3 (02:10→05:53)
[2018-02-02] MEDS: ALBUTEROL/IPRATROPIUM 2.5MG/0.5MG, 3 ML INLINE SCH ×6 (02:30→22:15)
[2018-02-02 04:58] LABS: ALBUMIN 2.1 g/dL (3.4-5.0); ANION GAP 15 mmol/L (5-15); CALCIUM 8.6 mg/dL (8.5-10.1); CHLORIDE 103 mmol/L (98-107)
[2018-02-02 04:59] LABS: MEAN CORPUSCULAR HEMOGLOBIN 25.5 pg (27.5-34.5); MEAN CORPUSCULAR HGB CONC 32.8 g/dL (33.2-36.2); MEAN CORPUSCULAR VOLUME 77.8 fL (81-97); MEAN PLATELET VOLUME 9.3 fL (7.4-10.4); PLATELET COUNT 243 x10^3/uL (130-400); RED BLOOD COUNT 3.37 x10^6/uL (4.38-5.82)
[2018-02-02 05:03] LABS: ALANINE AMINOTRANSFERASE 46 U/L (12-78); ALKALINE PHOSPHATASE 73 U/L (45-117); BILIRUBIN,TOTAL 0.3 mg/dL (0.2-1.0); CREATININE 3.49 mg/dL (0.7-1.3); TOTAL PROTEIN 6.3 g/dL (6.4-8.2); TRIGLYCERIDES 265 mg/dL (50-200)
[2018-02-02] MEDS: KSCALE TO 4.5 IV SCH ×4 (05:12→20:30)
[2018-02-02 05:52] LABS: BASOPHILS % (AUTO) 1 % (0-1); EOSINOPHILS # (AUTO) 0.33 x10^3/uL (0-0.4); EOSINOPHILS % (AUTO) 4 % (1-7); LYMPHOCYTES # (AUTO) 1.13 x10^3/uL (1-3.4); LYMPHOCYTES % (AUTO) 14 % (22-44); MD SCAN; MONOCYTES % (AUTO) 6 % (2-9); NEUTROPHILS # (AUTO) 6.07 x10^3/uL (1.8-6.8); NEUTROPHILS % (AUTO) 75 % (42-75)
[2018-02-02] MEDS: CALCITRIOL 0.25 MCG CAPSULE PO SCH (08:27)
[2018-02-02] MEDS: ASPIRIN 81 MG TABLET CHEW PO SCH (08:27)
[2018-02-02] MEDS: AMIODARONE 200 MG TABLET PO SCH ×2 (08:28→20:44)
[2018-02-02] MEDS: IRON SUCROSE COMPLEX 100MG/5ML IV SCH (08:28)
[2018-02-02] MEDS: FAMOTIDINE 20 MG/2 ML IVPush SCH (08:29)
[2018-02-02] MEDS: INSULIN GLARGINE 100 UNITS/ML, PEN SQ-INSULIN SCH ×2 (08:46→17:56)
[2018-02-02] MEDS: DOCUSATE 50 MG/5 ML, 10ML UDC NG SCH ×2 (09:00→20:52)
[2018-02-02] MEDS: SODIUM CHLORIDE FLUSH 10ML SYR IVF SCH ×2 (09:00→20:51)
[2018-02-02] MEDS: ENOXAPARIN 30 MG/0.3 ML SQ SCH (09:00)
[2018-02-02] MEDS ORDERED: LIDOCAINE-MPF 1%, 5ML ONE (09:20)
[2018-02-02] MEDS: MIDAZOLAM HCL 25 MG in SODIUM CHLORIDE 0.9% 245 ML IV PRN ×3 (10:36→22:11)
[2018-02-02] MEDS ORDERED: DIGOXIN 0.25 MG/ML, 2ML ONE (15:41)
[2018-02-02] MEDS ORDERED: AMIODARONE 300 MG in DEXTROSE 5% 100 ML IV ONE (16:00)
[2018-02-02] MEDS ORDERED: FILTER 0.22 MICRON IV ONE ×2 (16:00→18:00)
[2018-02-02] MEDS ORDERED: DIGOXIN 0.25 MG/ML, 2ML IVPush ONE (16:00)
[2018-02-02] MEDS ORDERED: AMIODARONE 900 MG in DEXTROSE 5% 482 ML IV PRN (18:00)
[2018-02-02] MEDS ORDERED: AMIODARONE 150 MG in DEXTROSE 5% 100 ML IV ONE (18:00)
[2018-02-02] MEDS: [UNRECOGNIZED DRUG - REMARK] MC SCH (18:00)
[2018-02-02] MEDS: FENTANYL PF 100 MCG/2ML IVPush PRN ×2 (19:33→23:56)
[2018-02-02] MEDS: ATORVASTATIN 40 MG TABLET PO SCH (20:52)
[2018-02-03] MEDS: AMPICILLIN/SULBACTAM 3 GM in SODIUM CHLORIDE 0.9% 100 ML IV SCH ×4 (00:27→18:27)
[2018-02-03] MEDS: INSULIN LISPRO 100 UNITS/ML, PEN SQ-INSULIN SCH ×4 (00:27→18:26)
[2018-02-03] MEDS: [UNRECOGNIZED DRUG - REMARK] MC SCH (00:27)
[2018-02-03] MEDS: MIDAZOLAM HCL 25 MG in SODIUM CHLORIDE 0.9% 245 ML IV PRN ×4 (02:17→23:32)
[2018-02-03] MEDS: ALBUTEROL/IPRATROPIUM 2.5MG/0.5MG, 3 ML INLINE SCH ×6 (02:30→22:30)
[2018-02-03] MEDS: KSCALE TO 4.5 IV SCH (02:30)
[2018-02-03 04:12] LABS: ANION GAP 10 mmol/L (5-15); CHLORIDE 103 mmol/L (98-107)
[2018-02-03 04:14] LABS: BASOPHILS # (AUTO) 0.04 x10^3/uL (0-0.1); BASOPHILS % (AUTO) 1 % (0-1); EOSINOPHILS # (AUTO) 0.35 x10^3/uL (0-0.4); EOSINOPHILS % (AUTO) 5 % (1-7); LYMPHOCYTES % (AUTO) 16 % (22-44); MD NO; MEAN CORPUSCULAR HEMOGLOBIN 25.4 pg (27.5-34.5); MEAN CORPUSCULAR HGB CONC 32.4 g/dL (33.2-36.2); MEAN CORPUSCULAR VOLUME 78.3 fL (81-97); MONOCYTES # (AUTO) 0.58 x10^3/uL (0.2-0.8); MONOCYTES % (AUTO) 8 % (2-9); NEUTROPHILS # (AUTO) 5.54 x10^3/uL (1.8-6.8); NEUTROPHILS % (AUTO) 72 % (42-75); PLATELET COUNT 252 x10^3/uL (130-400); RED BLOOD COUNT 3.23 x10^6/uL (4.38-5.82); RED CELL DISTRIBUTION WIDTH 19.8 % (9.4-14.8)
[2018-02-03 04:16] LABS: ALANINE AMINOTRANSFERASE 45 U/L (12-78); ALKALINE PHOSPHATASE 76 U/L (45-117); BILIRUBIN,TOTAL 0.4 mg/dL (0.2-1.0); CREATININE 2.62 mg/dL (0.7-1.3); TOTAL PROTEIN 6.4 g/dL (6.4-8.2)
[2018-02-03 04:17] VITALS: BP 104/44
[2018-02-03 04:27] VITALS: BP 101/44
[2018-02-03 04:36] VITALS: BP 105/45
[2018-02-03] MEDS: FUROSEMIDE 100 MG in SODIUM CHLORIDE 0.9% 90 ML IV SCH (05:04)
[2018-02-03] MEDS: FENTANYL PF 100 MCG/2ML IVPush PRN ×4 (05:06→19:43)
[2018-02-03] MEDS: INSULIN GLARGINE 100 UNITS/ML, PEN SQ-INSULIN SCH ×2 (05:22→18:27)
[2018-02-03] MEDS ORDERED: LIDOCAINE 1%-EPI 1:100K, 30ML ONE (06:03)
[2018-02-03] MEDS ORDERED: FENTANYL PF 250 MCG/5ML ONE (06:41)
[2018-02-03] MEDS ORDERED: ROCURONIUM 10 MG/ML,10ML ONE (07:00)
[2018-02-03] MEDS ORDERED: PROPOFOL 10 MG/ML, 20ML ONE (07:00)
[2018-02-03] MEDS: DOCUSATE 50 MG/5 ML, 10ML UDC NG SCH ×2 (09:00→21:00)
[2018-02-03] MEDS: AMIODARONE 200 MG TABLET PO SCH ×2 (09:00→21:24)
[2018-02-03] MEDS: ENOXAPARIN 30 MG/0.3 ML SQ SCH (09:00)
[2018-02-03] MEDS: FAMOTIDINE 20 MG/2 ML IVPush SCH (09:55)
[2018-02-03] MEDS: METOPROLOL TARTRATE 25 MG TABLET PO/NG SCH ×2 (12:30→21:24)
[2018-02-03] MEDS: SODIUM CHLORIDE FLUSH 10ML SYR IVF SCH ×2 (12:31→21:25)
[2018-02-03] MEDS: ASPIRIN 81 MG TABLET CHEW PO SCH (12:31)
[2018-02-03] MEDS: CALCITRIOL 0.25 MCG CAPSULE PO SCH (12:32)
[2018-02-03] MEDS: OXYcodone IR 5MG TABLET PO PRN (21:23)
[2018-02-03] MEDS: ATORVASTATIN 40 MG TABLET PO SCH (21:24)
[2018-02-03] MEDS: FUROSEMIDE 20 MG/2 ML IV SCH (21:25)
[2018-02-04] MEDS: AMPICILLIN/SULBACTAM 3 GM in SODIUM CHLORIDE 0.9% 100 ML IV SCH ×4 (00:46→18:34)
[2018-02-04] MEDS: INSULIN LISPRO 100 UNITS/ML, PEN SQ-INSULIN SCH ×4 (01:02→18:07)
[2018-02-04] MEDS: ALBUTEROL/IPRATROPIUM 2.5MG/0.5MG, 3 ML INLINE SCH ×6 (02:30→22:30)
[2018-02-04] MEDS: OXYcodone IR 5MG TABLET PO PRN ×3 (02:31→18:04)
[2018-02-04] MEDS: FENTANYL PF 100 MCG/2ML IVPush PRN ×2 (02:31→18:34)
[2018-02-04 04:25] LABS: BASOPHILS # (AUTO) 0.07 x10^3/uL (0-0.1); BASOPHILS % (AUTO) 1 % (0-1); EOSINOPHILS # (AUTO) 0.47 x10^3/uL (0-0.4); EOSINOPHILS % (AUTO) 6 % (1-7); LYMPHOCYTES % (AUTO) 15 % (22-44); MD NO; MEAN CORPUSCULAR HEMOGLOBIN 24.6 pg (27.5-34.5); MEAN CORPUSCULAR HGB CONC 31.2 g/dL (33.2-36.2); MEAN CORPUSCULAR VOLUME 78.8 fL (81-97); MEAN PLATELET VOLUME 8.8 fL (7.4-10.4); MONOCYTES # (AUTO) 0.55 x10^3/uL (0.2-0.8); MONOCYTES % (AUTO) 7 % (2-9); NEUTROPHILS # (AUTO) 5.68 x10^3/uL (1.8-6.8); NEUTROPHILS % (AUTO) 71 % (42-75); PLATELET COUNT 286 x10^3/uL (130-400); RED BLOOD COUNT 3.38 x10^6/uL (4.38-5.82); RED CELL DISTRIBUTION WIDTH 20.6 % (9.4-14.8)
[2018-02-04 04:36] LABS: ALBUMIN 2.1 g/dL (3.4-5.0); ANION GAP 10 mmol/L (5-15); CALCIUM 8.3 mg/dL (8.5-10.1); CHLORIDE 103 mmol/L (98-107)
[2018-02-04 04:40] LABS: ALANINE AMINOTRANSFERASE 42 U/L (12-78); ALKALINE PHOSPHATASE 77 U/L (45-117); BILIRUBIN,TOTAL 0.4 mg/dL (0.2-1.0); TOTAL PROTEIN 6.5 g/dL (6.4-8.2); TRIGLYCERIDES 193 mg/dL (50-200)
[2018-02-04] MEDS: MIDAZOLAM HCL 25 MG in SODIUM CHLORIDE 0.9% 245 ML IV PRN ×2 (06:07→15:29)
[2018-02-04] MEDS: INSULIN GLARGINE 100 UNITS/ML, PEN SQ-INSULIN SCH ×2 (06:08→18:07)
[2018-02-04] MEDS: AMIODARONE 200 MG TABLET PO SCH ×2 (09:15→21:09)
[2018-02-04] MEDS: METOPROLOL TARTRATE 25 MG TABLET PO/NG SCH ×2 (09:16→21:10)
[2018-02-04] MEDS: ASPIRIN 81 MG TABLET CHEW PO SCH (09:16)
[2018-02-04] MEDS: FAMOTIDINE 20 MG/2 ML IVPush SCH (09:16)
[2018-02-04] MEDS: CALCITRIOL 0.25 MCG CAPSULE PO SCH (09:16)
[2018-02-04] MEDS: FUROSEMIDE 20 MG/2 ML IV SCH ×2 (09:17→21:09)
[2018-02-04] MEDS: ENOXAPARIN 30 MG/0.3 ML SQ SCH (09:17)
[2018-02-04] MEDS: SODIUM CHLORIDE FLUSH 10ML SYR IVF SCH ×2 (09:17→21:10)
[2018-02-04] MEDS: ATORVASTATIN 40 MG TABLET PO SCH (21:10)
[2018-02-05] MEDS: AMPICILLIN/SULBACTAM 3 GM in SODIUM CHLORIDE 0.9% 100 ML IV SCH ×4 (01:08→18:09)
[2018-02-05] MEDS: MIDAZOLAM HCL 25 MG in SODIUM CHLORIDE 0.9% 245 ML IV PRN ×3 (01:08→21:16)
[2018-02-05] MEDS: FENTANYL PF 100 MCG/2ML IVPush PRN ×3 (01:15→13:28)
[2018-02-05] MEDS: ALBUTEROL/IPRATROPIUM 2.5MG/0.5MG, 3 ML INLINE SCH ×6 (01:36→21:21)
[2018-02-05] MEDS: INSULIN LISPRO 100 UNITS/ML, PEN SQ-INSULIN SCH ×4 (02:43→18:10)
[2018-02-05] MEDS: OXYcodone IR 5MG TABLET PO PRN ×3 (02:59→19:55)
[2018-02-05 03:22] LABS: BASOPHILS # (AUTO) 0.03 x10^3/uL (0-0.1); BASOPHILS % (AUTO) 0 % (0-1); EOSINOPHILS # (AUTO) 0.45 x10^3/uL (0-0.4); EOSINOPHILS % (AUTO) 6 % (1-7); LYMPHOCYTES # (AUTO) 0.95 x10^3/uL (1-3.4); LYMPHOCYTES % (AUTO) 12 % (22-44); MD NO; MEAN CORPUSCULAR HEMOGLOBIN 25.5 pg (27.5-34.5); MEAN CORPUSCULAR VOLUME 79.8 fL (81-97); MEAN PLATELET VOLUME 8.7 fL (7.4-10.4); MONOCYTES # (AUTO) 0.35 x10^3/uL (0.2-0.8); MONOCYTES % (AUTO) 4 % (2-9); NEUTROPHILS # (AUTO) 6.26 x10^3/uL (1.8-6.8); NEUTROPHILS % (AUTO) 78 % (42-75); PLATELET COUNT 290 x10^3/uL (130-400); RED BLOOD COUNT 3.32 x10^6/uL (4.38-5.82); RED CELL DISTRIBUTION WIDTH 20.7 % (9.4-14.8)
[2018-02-05 03:34] LABS: ALANINE AMINOTRANSFERASE 36 U/L (12-78); ALBUMIN 2.1 g/dL (3.4-5.0); ANION GAP 10 mmol/L (5-15); CALCIUM 8.3 mg/dL (8.5-10.1); CHLORIDE 102 mmol/L (98-107)
[2018-02-05 03:37] LABS: ALKALINE PHOSPHATASE 75 U/L (45-117); BILIRUBIN,TOTAL 0.3 mg/dL (0.2-1.0); TOTAL PROTEIN 6.6 g/dL (6.4-8.2); TRIGLYCERIDES 189 mg/dL (50-200)
[2018-02-05] MEDS: INSULIN GLARGINE 100 UNITS/ML, PEN SQ-INSULIN SCH ×2 (06:10→18:10)
[2018-02-05] MEDS: FUROSEMIDE 20 MG/2 ML IV SCH ×2 (08:56→19:54)
[2018-02-05] MEDS: CALCITRIOL 0.25 MCG CAPSULE PO SCH (08:57)
[2018-02-05] MEDS: AMIODARONE 200 MG TABLET PO SCH ×2 (08:57→19:55)
[2018-02-05] MEDS: SODIUM CHLORIDE FLUSH 10ML SYR IVF SCH ×2 (08:57→19:55)
[2018-02-05] MEDS: FAMOTIDINE 20 MG/2 ML IVPush SCH (08:57)
[2018-02-05] MEDS: ENOXAPARIN 30 MG/0.3 ML SQ SCH (08:57)
[2018-02-05] MEDS: ASPIRIN 81 MG TABLET CHEW PO SCH (08:57)
[2018-02-05] MEDS: METOPROLOL TARTRATE 25 MG TABLET PO/NG SCH ×2 (09:08→19:56)
[2018-02-05] MEDS: ATORVASTATIN 40 MG TABLET PO SCH (19:55)
[2018-02-06] MEDS: AMPICILLIN/SULBACTAM 3 GM in SODIUM CHLORIDE 0.9% 100 ML IV SCH ×4 (00:44→18:39)
[2018-02-06] MEDS: INSULIN LISPRO 100 UNITS/ML, PEN SQ-INSULIN SCH ×4 (00:46→18:44)
[2018-02-06] MEDS: MIDAZOLAM HCL 25 MG in SODIUM CHLORIDE 0.9% 245 ML IV PRN ×4 (01:40→20:51)
[2018-02-06] MEDS: ALBUTEROL/IPRATROPIUM 2.5MG/0.5MG, 3 ML INLINE SCH ×6 (01:57→22:30)
[2018-02-06 03:52] LABS: BASOPHILS # (AUTO) 0.04 x10^3/uL (0-0.1); BASOPHILS % (AUTO) 1 % (0-1); EOSINOPHILS # (AUTO) 0.56 x10^3/uL (0-0.4); EOSINOPHILS % (AUTO) 9 % (1-7); LYMPHOCYTES # (AUTO) 1.29 x10^3/uL (1-3.4); LYMPHOCYTES % (AUTO) 21 % (22-44); MD NO; MEAN CORPUSCULAR HEMOGLOBIN 24.9 pg (27.5-34.5); MEAN CORPUSCULAR HGB CONC 31.4 g/dL (33.2-36.2); MEAN CORPUSCULAR VOLUME 79.4 fL (81-97); MEAN PLATELET VOLUME 8.4 fL (7.4-10.4); MONOCYTES # (AUTO) 0.38 x10^3/uL (0.2-0.8); MONOCYTES % (AUTO) 6 % (2-9); NEUTROPHILS # (AUTO) 3.96 x10^3/uL (1.8-6.8); NEUTROPHILS % (AUTO) 64 % (42-75); PLATELET COUNT 274 x10^3/uL (130-400); RED BLOOD COUNT 3.38 x10^6/uL (4.38-5.82); RED CELL DISTRIBUTION WIDTH 20.8 % (9.4-14.8)
[2018-02-06 04:03] LABS: ALANINE AMINOTRANSFERASE 33 U/L (12-78); ALBUMIN 2.1 g/dL (3.4-5.0); ANION GAP 9 mmol/L (5-15); CALCIUM 7.8 mg/dL (8.5-10.1); CHLORIDE 104 mmol/L (98-107)
[2018-02-06 04:06] LABS: ALKALINE PHOSPHATASE 71 U/L (45-117); BILIRUBIN,TOTAL 0.3 mg/dL (0.2-1.0); CREATININE 2.38 mg/dL (0.7-1.3); TOTAL PROTEIN 6.3 g/dL (6.4-8.2)
[2018-02-06 04:20] VITALS: BP 146/55
[2018-02-06] MEDS: FENTANYL PF 100 MCG/2ML IVPush PRN ×2 (05:22→23:31)
[2018-02-06] MEDS: INSULIN GLARGINE 100 UNITS/ML, PEN SQ-INSULIN SCH ×2 (05:45→18:40)
[2018-02-06] MEDS: ASPIRIN 81 MG TABLET CHEW PO SCH (08:01)
[2018-02-06] MEDS: ENOXAPARIN 30 MG/0.3 ML SQ SCH (08:01)
[2018-02-06] MEDS: CALCITRIOL 0.25 MCG CAPSULE PO SCH (08:01)
[2018-02-06] MEDS: AMIODARONE 200 MG TABLET PO SCH (08:02)
[2018-02-06] MEDS: METOPROLOL TARTRATE 25 MG TABLET PO/NG SCH ×2 (08:03→20:40)
[2018-02-06] MEDS: SODIUM CHLORIDE FLUSH 10ML SYR IVF SCH ×2 (08:03→20:39)
[2018-02-06] MEDS: OXYcodone IR 5MG TABLET PO PRN ×3 (08:13→20:40)
[2018-02-06] MEDS ORDERED: POTASSIUM CHLORIDE 20 MEQ PACKET PO ONE (10:00)
[2018-02-06] MEDS: FUROSEMIDE 20 MG/2 ML IV SCH ×2 (12:06→20:39)
[2018-02-06] MEDS: FAMOTIDINE 20 MG/2 ML IVPush SCH (12:06)
[2018-02-06] MEDS: ATORVASTATIN 40 MG TABLET PO SCH (20:39)
[2018-02-07] MEDS: AMPICILLIN/SULBACTAM 3 GM in SODIUM CHLORIDE 0.9% 100 ML IV SCH ×4 (01:23→20:37)
[2018-02-07] MEDS: INSULIN LISPRO 100 UNITS/ML, PEN SQ-INSULIN SCH ×4 (01:24→20:50)
[2018-02-07] MEDS: MIDAZOLAM HCL 25 MG in SODIUM CHLORIDE 0.9% 245 ML IV PRN ×3 (01:24→12:43)
[2018-02-07] MEDS: ALBUTEROL/IPRATROPIUM 2.5MG/0.5MG, 3 ML INLINE SCH ×6 (02:30→22:28)
[2018-02-07 04:00] VITALS: BP 130/50
[2018-02-07] MEDS: FENTANYL PF 100 MCG/2ML IVPush PRN ×3 (04:43→20:40)
[2018-02-07 05:08] LABS: BASOPHILS # (AUTO) 0.02 x10^3/uL (0-0.1); BASOPHILS % (AUTO) 0 % (0-1); EOSINOPHILS # (AUTO) 0.57 x10^3/uL (0-0.4); EOSINOPHILS % (AUTO) 9 % (1-7); LYMPHOCYTES # (AUTO) 1.13 x10^3/uL (1-3.4); LYMPHOCYTES % (AUTO) 19 % (22-44); MD NO; MEAN CORPUSCULAR HEMOGLOBIN 25.9 pg (27.5-34.5); MEAN CORPUSCULAR VOLUME 80.8 fL (81-97); MEAN PLATELET VOLUME 8.7 fL (7.4-10.4); MONOCYTES # (AUTO) 0.31 x10^3/uL (0.2-0.8); MONOCYTES % (AUTO) 5 % (2-9); NEUTROPHILS # (AUTO) 4.07 x10^3/uL (1.8-6.8); NEUTROPHILS % (AUTO) 67 % (42-75); PLATELET COUNT 270 x10^3/uL (130-400); RED BLOOD COUNT 3.39 x10^6/uL (4.38-5.82); RED CELL DISTRIBUTION WIDTH 21.4 % (9.4-14.8)
[2018-02-07 05:19] LABS: ANION GAP 11 mmol/L (5-15); CALCIUM 7.7 mg/dL (8.5-10.1); CHLORIDE 106 mmol/L (98-107)
[2018-02-07 05:20] LABS: CREATININE 2.53 mg/dL (0.7-1.3); TRIGLYCERIDES 171 mg/dL (50-200)
[2018-02-07] MEDS: INSULIN GLARGINE 100 UNITS/ML, PEN SQ-INSULIN SCH ×2 (05:49→20:49)
[2018-02-07] MEDS ORDERED: ENOXAPARIN 40 MG/0.4 ML SQ SCH (08:00)
[2018-02-07] MEDS: FUROSEMIDE 20 MG/2 ML IV SCH ×2 (08:33→21:50)
[2018-02-07] MEDS: FAMOTIDINE 20 MG/2 ML IVPush SCH (08:33)
[2018-02-07] MEDS: ERGOCALCIFEROL 50,000 UNIT CAPSULE PO SCH (08:34)
[2018-02-07] MEDS: METOPROLOL TARTRATE 25 MG TABLET PO/NG SCH ×2 (08:34→21:51)
[2018-02-07] MEDS: ENOXAPARIN 30 MG/0.3 ML SQ SCH (08:55)
[2018-02-07] MEDS: AMIODARONE 200 MG TABLET PO SCH (08:55)
[2018-02-07] MEDS: ASPIRIN 81 MG TABLET CHEW PO SCH (08:55)
[2018-02-07] MEDS: CALCITRIOL 0.25 MCG CAPSULE PO SCH (08:55)
[2018-02-07] MEDS: SODIUM CHLORIDE FLUSH 10ML SYR IVF SCH ×2 (08:56→21:50)
[2018-02-07] MEDS: DARBEPOETIN 100 MCG/ML SQ SCH (15:37)
[2018-02-07] MEDS: MIDAZOLAM HCL 50 MG in SODIUM CHLORIDE 0.9% 240 ML IV PRN (20:54)
[2018-02-07] MEDS: ATORVASTATIN 40 MG TABLET PO SCH (21:51)
[2018-02-08] MEDS: FENTANYL PF 100 MCG/2ML IVPush PRN ×3 (00:17→20:27)
[2018-02-08] MEDS: AMPICILLIN/SULBACTAM 3 GM in SODIUM CHLORIDE 0.9% 100 ML IV SCH ×3 (00:19→19:13)
[2018-02-08] MEDS: ALBUTEROL/IPRATROPIUM 2.5MG/0.5MG, 3 ML INLINE SCH ×6 (02:30→23:07)
[2018-02-08 04:08] VITALS: BP 112/52
[2018-02-08 04:24] LABS: BASOPHILS # (AUTO) 0.02 x10^3/uL (0-0.1); BASOPHILS % (AUTO) 0 % (0-1); EOSINOPHILS # (AUTO) 0.54 x10^3/uL (0-0.4); EOSINOPHILS % (AUTO) 9 % (1-7); LYMPHOCYTES % (AUTO) 21 % (22-44); MD NO; MEAN CORPUSCULAR HEMOGLOBIN 25.9 pg (27.5-34.5); MEAN CORPUSCULAR HGB CONC 31.9 g/dL (33.2-36.2); MEAN CORPUSCULAR VOLUME 81.3 fL (81-97); MEAN PLATELET VOLUME 8.8 fL (7.4-10.4); MONOCYTES # (AUTO) 0.36 x10^3/uL (0.2-0.8); MONOCYTES % (AUTO) 6 % (2-9); NEUTROPHILS # (AUTO) 4.13 x10^3/uL (1.8-6.8); NEUTROPHILS % (AUTO) 65 % (42-75); PLATELET COUNT 244 x10^3/uL (130-400); RED CELL DISTRIBUTION WIDTH 22.1 % (9.4-14.8)
[2018-02-08 04:25] LABS: ANION GAP 11 mmol/L (5-15); CALCIUM 8.4 mg/dL (8.5-10.1); CHLORIDE 102 mmol/L (98-107); CREATININE 3.06 mg/dL (0.7-1.3); TRIGLYCERIDES 166 mg/dL (50-200)
[2018-02-08] MEDS: INSULIN GLARGINE 100 UNITS/ML, PEN SQ-INSULIN SCH ×2 (04:51→19:13)
[2018-02-08] MEDS: INSULIN LISPRO 100 UNITS/ML, PEN SQ-INSULIN SCH ×4 (04:51→21:28)
[2018-02-08] MEDS: MIDAZOLAM HCL 50 MG in SODIUM CHLORIDE 0.9% 240 ML IV PRN ×2 (05:53→21:16)
[2018-02-08] MEDS: ENOXAPARIN 30 MG/0.3 ML SQ SCH (08:33)
[2018-02-08] MEDS: FUROSEMIDE 20 MG/2 ML IV SCH ×2 (08:35→21:17)
[2018-02-08] MEDS: CALCITRIOL 0.25 MCG CAPSULE PO SCH (08:35)
[2018-02-08] MEDS: METOPROLOL TARTRATE 25 MG TABLET PO/NG SCH ×2 (08:36→21:18)
[2018-02-08] MEDS: AMIODARONE 200 MG TABLET PO SCH (08:36)
[2018-02-08] MEDS: FAMOTIDINE 20 MG/2 ML IVPush SCH (08:36)
[2018-02-08] MEDS: SODIUM CHLORIDE FLUSH 10ML SYR IVF SCH ×2 (08:37→21:18)
[2018-02-08] MEDS: ASPIRIN 81 MG TABLET CHEW PO SCH (08:37)
[2018-02-08] MEDS: ATORVASTATIN 40 MG TABLET PO SCH (21:18)
[2018-02-09] MEDS: AMPICILLIN/SULBACTAM 3 GM in SODIUM CHLORIDE 0.9% 100 ML IV SCH ×4 (00:34→18:30)
[2018-02-09] MEDS: ALBUTEROL/IPRATROPIUM 2.5MG/0.5MG, 3 ML INLINE SCH ×6 (03:03→22:47)
[2018-02-09] MEDS: INSULIN LISPRO 100 UNITS/ML, PEN SQ-INSULIN SCH ×4 (03:47→21:16)
[2018-02-09 04:00] VITALS: BP 141/64
[2018-02-09 04:02] LABS: MEAN CORPUSCULAR HEMOGLOBIN 25.4 pg (27.5-34.5); MEAN CORPUSCULAR HGB CONC 31.4 g/dL (33.2-36.2); MEAN CORPUSCULAR VOLUME 80.8 fL (81-97); MEAN PLATELET VOLUME 9.5 fL (7.4-10.4); PLATELET COUNT 260 x10^3/uL (130-400); RED CELL DISTRIBUTION WIDTH 22.2 % (9.4-14.8)
[2018-02-09 04:09] LABS: ANION GAP 13 mmol/L (5-15); CALCIUM 8.8 mg/dL (8.5-10.1); CHLORIDE 102 mmol/L (98-107); CREATININE 3.56 mg/dL (0.7-1.3)
[2018-02-09 04:17] LABS: BASOPHILS # (AUTO) 0.05 x10^3/uL (0-0.1); BASOPHILS % (AUTO) 1 % (0-1); EOSINOPHILS # (AUTO) 0.49 x10^3/uL (0-0.4); EOSINOPHILS % (AUTO) 7 % (1-7); LYMPHOCYTES # (AUTO) 1.55 x10^3/uL (1-3.4); LYMPHOCYTES % (AUTO) 22 % (22-44); MD SCAN; MONOCYTES % (AUTO) 6 % (2-9); NEUTROPHILS % (AUTO) 64 % (42-75)
[2018-02-09] MEDS: INSULIN GLARGINE 100 UNITS/ML, PEN SQ-INSULIN SCH ×2 (05:46→18:31)
[2018-02-09] MEDS: MIDAZOLAM HCL 50 MG in SODIUM CHLORIDE 0.9% 240 ML IV PRN (07:39)
[2018-02-09] MEDS: FAMOTIDINE 20 MG/2 ML IVPush SCH (08:26)
[2018-02-09] MEDS: ASPIRIN 81 MG TABLET CHEW PO SCH (08:26)
[2018-02-09] MEDS: FUROSEMIDE 20 MG/2 ML IV SCH ×2 (08:26→23:09)
[2018-02-09] MEDS: ENOXAPARIN 30 MG/0.3 ML SQ SCH (08:26)
[2018-02-09] MEDS: AMIODARONE 200 MG TABLET PO SCH (08:26)
[2018-02-09] MEDS: METOPROLOL TARTRATE 25 MG TABLET PO/NG SCH ×2 (08:26→23:37)
[2018-02-09] MEDS: CALCITRIOL 0.25 MCG CAPSULE PO SCH (08:27)
[2018-02-09] MEDS: SODIUM CHLORIDE FLUSH 10ML SYR IVF SCH ×2 (08:30→23:10)
[2018-02-09] MEDS ORDERED: MAGNESIUM SULFATE PMX 2GM/50ML 50 ML IVPB ONE (09:30)
[2018-02-09] MEDS: RISPERIDONE 1 MG/ML ORAL SOLN PO SCH ×2 (10:45→23:11)
[2018-02-09] MEDS: HYDROcodone/APAP 5/325 TABLET PO PRN (15:24)
[2018-02-09] MEDS: MIDAZOLAM 1 MG/ML, 2ML IV PRN ×2 (16:23→23:22)
[2018-02-09] MEDS: FENTANYL PF 100 MCG/2ML IVPush PRN ×2 (19:58→23:28)
[2018-02-09] MEDS: ATORVASTATIN 40 MG TABLET PO SCH (21:16)
[2018-02-09 23:36] VITALS: BP 134/60
[2018-02-10] MEDS: FENTANYL PF 100 MCG/2ML IVPush PRN ×3 (00:22→06:01)
[2018-02-10] MEDS: INSULIN LISPRO 100 UNITS/ML, PEN SQ-INSULIN SCH ×4 (03:33→20:31)
[2018-02-10] MEDS: ALBUTEROL/IPRATROPIUM 2.5MG/0.5MG, 3 ML INLINE SCH ×6 (03:35→21:58)
[2018-02-10 04:00] VITALS: BP 138/63
[2018-02-10 05:09] LABS: MEAN CORPUSCULAR HEMOGLOBIN 25.7 pg (27.5-34.5); MEAN CORPUSCULAR HGB CONC 31.9 g/dL (33.2-36.2); MEAN CORPUSCULAR VOLUME 80.6 fL (81-97); MEAN PLATELET VOLUME 9.9 fL (7.4-10.4); PLATELET COUNT 252 x10^3/uL (130-400); RED BLOOD COUNT 4.08 x10^6/uL (4.38-5.82); RED CELL DISTRIBUTION WIDTH 22.2 % (9.4-14.8)
[2018-02-10 05:12] LABS: ANION GAP 12 mmol/L (5-15); CALCIUM 9.6 mg/dL (8.5-10.1); CHLORIDE 97 mmol/L (98-107); CREATININE 3.62 mg/dL (0.7-1.3); TRIGLYCERIDES 243 mg/dL (50-200)
[2018-02-10 05:46] LABS: BASOPHILS # (AUTO) 0.05 x10^3/uL (0-0.1); BASOPHILS % (AUTO) 1 % (0-1); EOSINOPHILS # (AUTO) 0.39 x10^3/uL (0-0.4); EOSINOPHILS % (AUTO) 5 % (1-7); LYMPHOCYTES # (AUTO) 1.44 x10^3/uL (1-3.4); LYMPHOCYTES % (AUTO) 17 % (22-44); MD SCAN; MONOCYTES # (AUTO) 0.46 x10^3/uL (0.2-0.8); MONOCYTES % (AUTO) 5 % (2-9); NEUTROPHILS # (AUTO) 6.37 x10^3/uL (1.8-6.8); NEUTROPHILS % (AUTO) 73 % (42-75)
[2018-02-10] MEDS: AMPICILLIN/SULBACTAM 3 GM in SODIUM CHLORIDE 0.9% 100 ML IV SCH ×2 (06:00→18:00)
[2018-02-10] MEDS: INSULIN GLARGINE 100 UNITS/ML, PEN SQ-INSULIN SCH ×3 (06:01→17:59)
[2018-02-10] MEDS: SODIUM CHLORIDE FLUSH 10ML SYR IVF SCH ×2 (09:36→20:27)
[2018-02-10] MEDS: FAMOTIDINE 20 MG/2 ML IVPush SCH (09:36)
[2018-02-10] MEDS: ENOXAPARIN 30 MG/0.3 ML SQ SCH (09:36)
[2018-02-10] MEDS: ASPIRIN 81 MG TABLET CHEW PO SCH (09:37)
[2018-02-10] MEDS: CALCITRIOL 0.25 MCG CAPSULE PO SCH (09:37)
[2018-02-10] MEDS: AMIODARONE 200 MG TABLET PO SCH (09:37)
[2018-02-10] MEDS: METOPROLOL TARTRATE 25 MG TABLET PO/NG SCH ×3 (09:37→20:32)
[2018-02-10] MEDS: RISPERIDONE 1 MG/ML ORAL SOLN PO SCH ×2 (09:40→20:27)
[2018-02-10] MEDS: FUROSEMIDE 20 MG/2 ML IV SCH (14:01)
[2018-02-10] MEDS: HYDROcodone/APAP 5/325 TABLET PO PRN (15:21)
[2018-02-10] MEDS: ATORVASTATIN 40 MG TABLET PO SCH (20:27)
[2018-02-11] MEDS: FUROSEMIDE 20 MG/2 ML IV SCH ×3 (01:17→10:25)
[2018-02-11] MEDS: ALBUTEROL/IPRATROPIUM 2.5MG/0.5MG, 3 ML INLINE SCH ×6 (02:30→22:36)
[2018-02-11] MEDS ORDERED: AMIODARONE 150 MG in DEXTROSE 5% 100 ML IV ONE (03:00)
[2018-02-11] MEDS ORDERED: SODIUM CHLORIDE 0.9%, 500ML IVBOLUS ONE (03:00)
[2018-02-11] MEDS ORDERED: FILTER 0.22 MICRON IV PRN (03:00)
[2018-02-11] MEDS: INSULIN LISPRO 100 UNITS/ML, PEN SQ-INSULIN SCH (03:28)
[2018-02-11] MEDS: AMIODARONE 900 MG in DEXTROSE 5% 482 ML IV PRN (03:29)
[2018-02-11 03:43] LABS: ANION GAP 15 mmol/L (5-15); CALCIUM 9.6 mg/dL (8.5-10.1); CHLORIDE 95 mmol/L (98-107); CREATININE 4.53 mg/dL (0.7-1.3)
[2018-02-11 04:05] LABS: BASOPHILS # (AUTO) 0.05 x10^3/uL (0-0.1); BASOPHILS % (AUTO) 0 % (0-1); EOSINOPHILS % (AUTO) 1 % (1-7); LYMPHOCYTES # (AUTO) 1.82 x10^3/uL (1-3.4); LYMPHOCYTES % (AUTO) 15 % (22-44); MD SCAN; MEAN CORPUSCULAR HGB CONC 32.2 g/dL (33.2-36.2); MEAN CORPUSCULAR VOLUME 80.8 fL (81-97); MEAN PLATELET VOLUME 10.1 fL (7.4-10.4); MONOCYTES # (AUTO) 0.91 x10^3/uL (0.2-0.8); MONOCYTES % (AUTO) 8 % (2-9); NEUTROPHILS # (AUTO) 9.22 x10^3/uL (1.8-6.8); NEUTROPHILS % (AUTO) 76 % (42-75); PLATELET COUNT 270 x10^3/uL (130-400); RED CELL DISTRIBUTION WIDTH 23.1 % (9.4-14.8)
[2018-02-11 04:10] VITALS: BP 110/60
[2018-02-11] MEDS: INSULIN GLARGINE 100 UNITS/ML, PEN SQ-INSULIN SCH ×2 (06:00→21:53)
[2018-02-11] MEDS ORDERED: INSULIN GLARGINE 100 UNITS/ML, PEN SQ-INSULIN SCH (09:00)
[2018-02-11] MEDS: AMIODARONE 200 MG TABLET PO SCH (09:00)
[2018-02-11] MEDS: RISPERIDONE 1 MG/ML ORAL SOLN PO SCH ×2 (10:22→21:53)
[2018-02-11] MEDS: AMPICILLIN/SULBACTAM 3 GM in SODIUM CHLORIDE 0.9% 100 ML IV SCH ×2 (10:22→21:53)
[2018-02-11] MEDS: SODIUM CHLORIDE FLUSH 10ML SYR IVF SCH ×2 (10:23→21:52)
[2018-02-11] MEDS: ASPIRIN 81 MG TABLET CHEW PO SCH (10:25)
[2018-02-11] MEDS: CALCITRIOL 0.25 MCG CAPSULE PO SCH (10:25)
[2018-02-11] MEDS: FAMOTIDINE 20 MG/2 ML IVPush SCH (10:32)
[2018-02-11] MEDS: ENOXAPARIN 30 MG/0.3 ML SQ SCH (10:32)
[2018-02-11] MEDS: METOPROLOL TARTRATE 25 MG TABLET PO/NG SCH ×2 (10:32→21:00)
[2018-02-11] MEDS: INSULIN LISPRO 100 UNITS/ML, PEN VERY HIGH DOSE SS SQ-INSULIN SCH ×3 (12:33→21:54)
[2018-02-11] MEDS ORDERED: INSULIN GLARGINE 100 UNITS/ML, PEN SQ-INSULIN ONE (15:00)
[2018-02-11] MEDS: NOREPINEPHRINE 4 MG in SODIUM CHLORIDE 0.9% 246 ML IV PRN (18:22)
[2018-02-11] MEDS: ATORVASTATIN 40 MG TABLET PO SCH (21:52)
[2018-02-12] MEDS: FENTANYL PF 100 MCG/2ML IVPush PRN ×6 (01:17→21:47)
[2018-02-12] MEDS: NOREPINEPHRINE 4 MG in SODIUM CHLORIDE 0.9% 246 ML IV PRN ×3 (01:26→17:22)
[2018-02-12] MEDS: AMIODARONE 900 MG in DEXTROSE 5% 482 ML IV PRN (01:45)
[2018-02-12] MEDS: ALBUTEROL/IPRATROPIUM 2.5MG/0.5MG, 3 ML INLINE SCH ×6 (02:17→23:22)
[2018-02-12 04:00] LABS: ANION GAP 14 mmol/L (5-15); CALCIUM 9.3 mg/dL (8.5-10.1); CHLORIDE 92 mmol/L (98-107); CREATININE 4.85 mg/dL (0.7-1.3)
[2018-02-12 04:04] LABS: BASOPHILS # (AUTO) 0.07 x10^3/uL (0-0.1); BASOPHILS % (AUTO) 1 % (0-1); EOSINOPHILS # (AUTO) 0.22 x10^3/uL (0-0.4); EOSINOPHILS % (AUTO) 2 % (1-7); LYMPHOCYTES % (AUTO) 15 % (22-44); MD SCAN; MEAN CORPUSCULAR HEMOGLOBIN 26.6 pg (27.5-34.5); MEAN CORPUSCULAR HGB CONC 32.7 g/dL (33.2-36.2); MEAN CORPUSCULAR VOLUME 81.1 fL (81-97); MEAN PLATELET VOLUME 11.2 fL (7.4-10.4); MONOCYTES # (AUTO) 1.08 x10^3/uL (0.2-0.8); MONOCYTES % (AUTO) 9 % (2-9); NEUTROPHILS # (AUTO) 9.46 x10^3/uL (1.8-6.8); NEUTROPHILS % (AUTO) 74 % (42-75); PLATELET COUNT 289 x10^3/uL (130-400); RED BLOOD COUNT 4.42 x10^6/uL (4.38-5.82); RED CELL DISTRIBUTION WIDTH 23.3 % (9.4-14.8)
[2018-02-12 05:07] VITALS: BP 92/35
[2018-02-12] MEDS: INSULIN LISPRO 100 UNITS/ML, PEN VERY HIGH DOSE SS SQ-INSULIN SCH ×3 (05:14→17:11)
[2018-02-12] MEDS: METOPROLOL TARTRATE 25 MG TABLET PO/NG SCH ×2 (09:00→20:49)
[2018-02-12] MEDS: AMIODARONE 200 MG TABLET PO SCH (09:00)
[2018-02-12] MEDS ORDERED: VANCOMYCIN PER PHARMACY MC PRN (10:00)
[2018-02-12] MEDS ORDERED: PHARMACOKINETIC CONSULTATION MC ONE (10:00)
[2018-02-12] MEDS ORDERED: PIPERACILLIN/TAZO 0.75 GM in SODIUM CHLORIDE 0.9% 50 ML IV SCH (10:00)
[2018-02-12] MEDS ORDERED: PHARMACOKINETIC MONITORING MC PRN (10:00)
[2018-02-12] MEDS: PIPERACILLIN/TAZO/PMX 2.25GM 50 ML IVPB SCH ×2 (10:26→19:45)
[2018-02-12] MEDS: RISPERIDONE 1 MG/ML ORAL SOLN PO SCH ×2 (10:26→20:48)
[2018-02-12] MEDS: ASPIRIN 81 MG TABLET CHEW PO SCH (10:26)
[2018-02-12] MEDS: CALCITRIOL 0.25 MCG CAPSULE PO SCH (10:26)
[2018-02-12] MEDS: FAMOTIDINE 20 MG/2 ML IVPush SCH (10:26)
[2018-02-12] MEDS: ENOXAPARIN 30 MG/0.3 ML SQ SCH (10:27)
[2018-02-12] MEDS: SODIUM CHLORIDE FLUSH 10ML SYR IVF SCH ×2 (10:27→21:42)
[2018-02-12] MEDS: INSULIN GLARGINE 100 UNITS/ML, PEN SQ-INSULIN SCH ×2 (10:33→21:03)
[2018-02-12] MEDS ORDERED: VANCOMYCIN 2,000 MG in SODIUM CHLORIDE 0.9% 500 ML IV ONE (12:00)
[2018-02-12] MEDS ORDERED: INSULIN GLARGINE 100 UNITS/ML, PEN SQ-INSULIN ONE (12:00)
[2018-02-12] MEDS ORDERED: AMIODARONE 150 MG in DEXTROSE 5% 100 ML IV ONE (12:00)
[2018-02-12] MEDS: HEPARIN 5,000 UNITS/ML, 1ML SQ SCH (17:07)
[2018-02-12] MEDS: HALOPERIDOL 5 MG/ML IV PRN (20:16)
[2018-02-12] MEDS: ATORVASTATIN 40 MG TABLET PO SCH (20:49)
[2018-02-12] MEDS: INSULIN LISPRO 100 UNITS/ML, PEN SQ-INSULIN SCH (21:05)
[2018-02-13] MEDS: NOREPINEPHRINE 4 MG in SODIUM CHLORIDE 0.9% 246 ML IV PRN ×3 (00:08→22:21)
[2018-02-13] MEDS: OXYcodone IR 5MG TABLET PO PRN (00:29)
[2018-02-13] MEDS: INSULIN LISPRO 100 UNITS/ML, PEN SQ-INSULIN SCH ×6 (01:15→21:41)
[2018-02-13] MEDS: FENTANYL PF 100 MCG/2ML IVPush PRN (02:40)
[2018-02-13] MEDS: ALBUTEROL/IPRATROPIUM 2.5MG/0.5MG, 3 ML INLINE SCH ×6 (02:49→22:38)
[2018-02-13] MEDS: HEPARIN 5,000 UNITS/ML, 1ML SQ SCH ×2 (03:17→10:00)
[2018-02-13] MEDS: HALOPERIDOL 5 MG/ML IV PRN (03:17)
[2018-02-13] MEDS: PIPERACILLIN/TAZO/PMX 2.25GM 50 ML IVPB SCH ×3 (03:38→22:52)
[2018-02-13] MEDS: AMIODARONE 900 MG in DEXTROSE 5% 482 ML IV PRN (03:41)
[2018-02-13 04:00] VITALS: BP 129/71
[2018-02-13 04:31] LABS: BASOPHILS # (AUTO) 0.05 x10^3/uL (0-0.1); BASOPHILS % (AUTO) 1 % (0-1); EOSINOPHILS # (AUTO) 0.16 x10^3/uL (0-0.4); EOSINOPHILS % (AUTO) 2 % (1-7); LYMPHOCYTES # (AUTO) 1.17 x10^3/uL (1-3.4); LYMPHOCYTES % (AUTO) 15 % (22-44); MD NO; MEAN CORPUSCULAR HEMOGLOBIN 26.1 pg (27.5-34.5); MEAN CORPUSCULAR HGB CONC 32.5 g/dL (33.2-36.2); MEAN CORPUSCULAR VOLUME 80.5 fL (81-97); MEAN PLATELET VOLUME 10.3 fL (7.4-10.4); MONOCYTES # (AUTO) 0.78 x10^3/uL (0.2-0.8); MONOCYTES % (AUTO) 10 % (2-9); NEUTROPHILS # (AUTO) 5.82 x10^3/uL (1.8-6.8); NEUTROPHILS % (AUTO) 73 % (42-75); PLATELET COUNT 238 x10^3/uL (130-400); RED BLOOD COUNT 3.94 x10^6/uL (4.38-5.82); RED CELL DISTRIBUTION WIDTH 23.6 % (9.4-14.8)
[2018-02-13 04:41] LABS: CHLORIDE 96 mmol/L (98-107)
[2018-02-13 04:50] LABS: ALANINE AMINOTRANSFERASE 30 U/L (12-78); ALBUMIN 2.5 g/dL (3.4-5.0); ALKALINE PHOSPHATASE 95 U/L (45-117); ANION GAP 18 mmol/L (5-15); BILIRUBIN,TOTAL 0.3 mg/dL (0.2-1.0); CALCIUM 8.9 mg/dL (8.5-10.1); CREATININE 6.45 mg/dL (0.7-1.3); TRIGLYCERIDES 236 mg/dL (50-200)
[2018-02-13] MEDS: ASPIRIN 81 MG TABLET CHEW PO SCH (09:10)
[2018-02-13] MEDS: CALCITRIOL 0.25 MCG CAPSULE PO SCH (09:10)
[2018-02-13] MEDS: METOPROLOL TARTRATE 25 MG TABLET PO/NG SCH ×2 (09:11→21:46)
[2018-02-13] MEDS: AMIODARONE 200 MG TABLET PO SCH ×2 (09:11→21:46)
[2018-02-13] MEDS: RISPERIDONE 1 MG/ML ORAL SOLN PO SCH ×2 (09:12→22:49)
[2018-02-13] MEDS ORDERED: ETOMIDATE 20 MG/10 ML IVPush ONE (09:50)
[2018-02-13] MEDS ORDERED: ROCURONIUM 10 MG/ML,10ML IVPush ONE (09:50)
[2018-02-13] MEDS ORDERED: FENTANYL PF 100 MCG/2ML IVPush ONE (09:50)
[2018-02-13] MEDS: SODIUM CHLORIDE FLUSH 10ML SYR IVF SCH ×2 (10:00→21:45)
[2018-02-13] MEDS: FAMOTIDINE 20 MG/2 ML IVPush SCH (10:06)
[2018-02-13] MEDS: INSULIN GLARGINE 100 UNITS/ML, PEN SQ-INSULIN SCH ×2 (10:08→22:21)
[2018-02-13] MEDS ORDERED: MIDAZOLAM 1 MG/ML, 2ML ONE (10:32)
[2018-02-13] MEDS ORDERED: MIDAZOLAM 1 MG/ML, 2ML IVPush PRN (11:00)
[2018-02-13] MEDS ORDERED: AMIODARONE 200 MG TABLET PO ONE (11:30)
[2018-02-13] MEDS ORDERED: HEPARIN 5,000 UNITS/ML, 1ML IV PRN (12:00)
[2018-02-13] MEDS ORDERED: HEPARIN 25,000 UNITS/500ML PMX 500 ML IV PRN (12:00)
[2018-02-13] MEDS ORDERED: HEPARIN 5,000 UNITS/ML, 1ML IV ONE (12:00)
[2018-02-13] MEDS ORDERED: ROCURONIUM 10MG/ML,5ML ONE (15:49)
[2018-02-13] MEDS ORDERED: ETOMIDATE 40 MG/20 ML ONE (15:49)
[2018-02-13] MEDS ORDERED: PROPOFOL 100 ML IV ONE (16:44)
[2018-02-13] MEDS: PROPOFOL 100 ML IV PRN (16:47)
[2018-02-13] MEDS ORDERED: PANTOPRAZOLE 40 MG IV IVPush STA (20:58)
[2018-02-13] MEDS: ATORVASTATIN 40 MG TABLET PO SCH (21:46)
[2018-02-14] MEDS: INSULIN LISPRO 100 UNITS/ML, PEN SQ-INSULIN SCH ×6 (00:55→21:47)
[2018-02-14] MEDS: NOREPINEPHRINE 4 MG in SODIUM CHLORIDE 0.9% 246 ML IV PRN ×4 (03:03→19:54)
[2018-02-14] MEDS: PROPOFOL 100 ML IV PRN ×5 (03:09→23:26)
[2018-02-14] MEDS: ALBUTEROL/IPRATROPIUM 2.5MG/0.5MG, 3 ML INLINE SCH ×6 (03:23→22:30)
[2018-02-14] MEDS: FENTANYL PF 100 MCG/2ML IVPush PRN ×2 (03:54→16:03)
[2018-02-14 04:00] VITALS: BP 126/50
[2018-02-14 04:47] LABS: BASOPHILS # (AUTO) 0.05 x10^3/uL (0-0.1); BASOPHILS % (AUTO) 1 % (0-1); EOSINOPHILS # (AUTO) 0.09 x10^3/uL (0-0.4); EOSINOPHILS % (AUTO) 1 % (1-7); LYMPHOCYTES # (AUTO) 1.17 x10^3/uL (1-3.4); LYMPHOCYTES % (AUTO) 14 % (22-44); MD NO; MEAN CORPUSCULAR HEMOGLOBIN 26.3 pg (27.5-34.5); MEAN CORPUSCULAR HGB CONC 32.3 g/dL (33.2-36.2); MEAN CORPUSCULAR VOLUME 81.5 fL (81-97); MEAN PLATELET VOLUME 10.4 fL (7.4-10.4); MONOCYTES # (AUTO) 0.69 x10^3/uL (0.2-0.8); MONOCYTES % (AUTO) 8 % (2-9); NEUTROPHILS # (AUTO) 6.51 x10^3/uL (1.8-6.8); NEUTROPHILS % (AUTO) 77 % (42-75); PLATELET COUNT 253 x10^3/uL (130-400); RED BLOOD COUNT 3.84 x10^6/uL (4.38-5.82); RED CELL DISTRIBUTION WIDTH 24.7 % (9.4-14.8)
[2018-02-14 04:56] LABS: ANION GAP 15 mmol/L (5-15); CALCIUM 8.9 mg/dL (8.5-10.1); CHLORIDE 92 mmol/L (98-107); CREATININE 5.71 mg/dL (0.7-1.3)
[2018-02-14] MEDS: PIPERACILLIN/TAZO/PMX 2.25GM 50 ML IVPB SCH ×3 (06:44→23:22)
[2018-02-14] MEDS: RISPERIDONE 1 MG/ML ORAL SOLN PO SCH ×2 (08:51→21:32)
[2018-02-14] MEDS: AMIODARONE 200 MG TABLET PO SCH ×2 (08:52→21:31)
[2018-02-14] MEDS: CALCITRIOL 0.25 MCG CAPSULE PO SCH (08:52)
[2018-02-14] MEDS: ASPIRIN 81 MG TABLET CHEW PO SCH (08:52)
[2018-02-14] MEDS: METOPROLOL TARTRATE 25 MG TABLET PO/NG SCH ×2 (08:52→21:32)
[2018-02-14] MEDS ORDERED: PANTOPRAZOLE 40 MG IV ONE (08:54)
[2018-02-14] MEDS: ERGOCALCIFEROL 50,000 UNIT CAPSULE PO SCH (08:56)
[2018-02-14] MEDS: PANTOPRAZOLE 40 MG IV IVPush SCH ×2 (08:56→21:31)
[2018-02-14] MEDS: SODIUM CHLORIDE FLUSH 10ML SYR IVF SCH ×2 (08:56→21:31)
[2018-02-14] MEDS: BACITRACIN OINT 500U/GM, 15 GM TP SCH ×2 (09:06→21:48)
[2018-02-14] MEDS: INSULIN GLARGINE 100 UNITS/ML, PEN SQ-INSULIN SCH ×2 (09:15→21:47)
[2018-02-14] MEDS: DARBEPOETIN 100 MCG/ML SQ SCH (13:56)
[2018-02-14] MEDS: ATORVASTATIN 40 MG TABLET PO SCH (21:30)
[2018-02-15] MEDS: NOREPINEPHRINE 4 MG in SODIUM CHLORIDE 0.9% 246 ML IV PRN ×2 (00:37→06:13)
[2018-02-15] MEDS: INSULIN LISPRO 100 UNITS/ML, PEN SQ-INSULIN SCH ×6 (01:55→21:05)
[2018-02-15] MEDS: ALBUTEROL/IPRATROPIUM 2.5MG/0.5MG, 3 ML INLINE SCH ×6 (02:30→22:03)
[2018-02-15] MEDS: PROPOFOL 100 ML IV PRN ×3 (05:22→22:32)
[2018-02-15 06:34] LABS: MEAN CORPUSCULAR HEMOGLOBIN 25.9 pg (27.5-34.5); MEAN PLATELET VOLUME 9.4 fL (7.4-10.4); PLATELET COUNT 224 x10^3/uL (130-400); RED BLOOD COUNT 3.58 x10^6/uL (4.38-5.82); RED CELL DISTRIBUTION WIDTH 24.3 % (9.4-14.8)
[2018-02-15 06:46] LABS: ANION GAP 17 mmol/L (5-15); CHLORIDE 95 mmol/L (98-107); CREATININE 7.59 mg/dL (0.7-1.3)
[2018-02-15 06:47] LABS: VANCOMYCIN,RANDOM 18.1 mcg/mL
[2018-02-15 06:55] LABS: BASOPHILS # (AUTO) 0.03 x10^3/uL (0-0.1); BASOPHILS % (AUTO) 0 % (0-1); EOSINOPHILS # (AUTO) 0.39 x10^3/uL (0-0.4); EOSINOPHILS % (AUTO) 6 % (1-7); LYMPHOCYTES # (AUTO) 0.84 x10^3/uL (1-3.4); LYMPHOCYTES % (AUTO) 13 % (22-44); MD SCAN; MONOCYTES % (AUTO) 8 % (2-9); NEUTROPHILS # (AUTO) 4.49 x10^3/uL (1.8-6.8); NEUTROPHILS % (AUTO) 72 % (42-75)
[2018-02-15] MEDS: CEFTRIAXONE PMX 1GM/50ML 50 ML IV SCH (08:19)
[2018-02-15] MEDS: METOPROLOL TARTRATE 25 MG TABLET PO/NG SCH (08:20)
[2018-02-15] MEDS ORDERED: PHENYLEPHRINE 20 MG in SODIUM CHLORIDE 0.9% 248 ML IV PRN (08:30)
[2018-02-15] MEDS ORDERED: PHENYLEPHRINE 40 MG in SODIUM CHLORIDE 0.9% 246 ML IV PRN (08:48)
[2018-02-15] MEDS: BACITRACIN OINT 500U/GM, 15 GM TP SCH ×2 (09:00→21:07)
[2018-02-15] MEDS: INSULIN GLARGINE 100 UNITS/ML, PEN SQ-INSULIN SCH ×2 (09:19→21:04)
[2018-02-15] MEDS: PANTOPRAZOLE 40 MG IV IVPush SCH ×2 (09:24→21:07)
[2018-02-15] MEDS: SODIUM CHLORIDE FLUSH 10ML SYR IVF SCH ×2 (09:24→21:04)
[2018-02-15] MEDS: CLOPIDOGREL 75 MG TABLET PO SCH (09:25)
[2018-02-15] MEDS: CALCITRIOL 0.25 MCG CAPSULE PO SCH (09:25)
[2018-02-15] MEDS: AMIODARONE 200 MG TABLET PO SCH ×2 (09:25→21:07)
[2018-02-15] MEDS: RISPERIDONE 1 MG/ML ORAL SOLN PO SCH ×2 (09:25→21:57)
[2018-02-15] MEDS: ALBUMIN HUMAN 25% 50 ML IV PRN ×2 (10:37→11:15)
[2018-02-15] MEDS ORDERED: ALBUMIN HUMAN 25% 0 ML ONE (12:22)
[2018-02-15] MEDS ORDERED: ALBUMIN HUMAN 25% 50 ML IV PRN (12:30)
[2018-02-15] MEDS ORDERED: PHENYLEPHRINE 80 MG in SODIUM CHLORIDE 0.9% 242 ML IV PRN (13:00)
[2018-02-15] MEDS: METRONIDAZOLE PMX 500MG/100ML 100 ML IV SCH ×2 (13:51→21:57)
[2018-02-15] MEDS: ATORVASTATIN 40 MG TABLET PO SCH (21:07)
[2018-02-15] MEDS: PHENYLEPHRINE 80 MG in SODIUM CHLORIDE 0.9% 242 ML IV PRN (21:59)
[2018-02-16] MEDS: FENTANYL PF 100 MCG/2ML IVPush PRN (00:30)
[2018-02-16] MEDS: INSULIN LISPRO 100 UNITS/ML, PEN SQ-INSULIN SCH ×6 (00:54→20:41)
[2018-02-16] MEDS: HALOPERIDOL 5 MG/ML IV PRN (00:59)
[2018-02-16] MEDS: ALBUTEROL/IPRATROPIUM 2.5MG/0.5MG, 3 ML INLINE SCH ×5 (02:30→22:30)
[2018-02-16 04:39] LABS: CHLORIDE 98 mmol/L (98-107)
[2018-02-16 04:44] LABS: ANION GAP 12 mmol/L (5-15); CALCIUM 8.7 mg/dL (8.5-10.1); CREATININE 5.83 mg/dL (0.7-1.3); TRIGLYCERIDES 213 mg/dL (50-200)
[2018-02-16 04:47] LABS: MEAN CORPUSCULAR HEMOGLOBIN 26.6 pg (27.5-34.5); MEAN CORPUSCULAR HGB CONC 32.4 g/dL (33.2-36.2); MEAN CORPUSCULAR VOLUME 81.9 fL (81-97); MEAN PLATELET VOLUME 9.7 fL (7.4-10.4); PLATELET COUNT 218 x10^3/uL (130-400); RED BLOOD COUNT 3.36 x10^6/uL (4.38-5.82); RED CELL DISTRIBUTION WIDTH 24.8 % (9.4-14.8)
[2018-02-16] MEDS: METRONIDAZOLE PMX 500MG/100ML 100 ML IV SCH ×3 (06:05→21:41)
[2018-02-16 06:38] LABS: BASOPHILS # (AUTO) 0.02 x10^3/uL (0-0.1); BASOPHILS % (AUTO) 0 % (0-1); EOSINOPHILS % (AUTO) 8 % (1-7); LYMPHOCYTES % (AUTO) 14 % (22-44); MD SCAN; MONOCYTES # (AUTO) 0.52 x10^3/uL (0.2-0.8); MONOCYTES % (AUTO) 8 % (2-9); NEUTROPHILS # (AUTO) 4.33 x10^3/uL (1.8-6.8); NEUTROPHILS % (AUTO) 69 % (42-75)
[2018-02-16] MEDS: PHENYLEPHRINE 80 MG in SODIUM CHLORIDE 0.9% 242 ML IV PRN (06:52)
[2018-02-16] MEDS: BACITRACIN OINT 500U/GM, 15 GM TP SCH ×2 (09:00→20:52)
[2018-02-16] MEDS: CLOPIDOGREL 75 MG TABLET PO SCH (09:07)
[2018-02-16] MEDS: HEPARIN 5,000 UNITS/ML, 1ML SQ SCH ×2 (09:08→17:35)
[2018-02-16] MEDS: CEFTRIAXONE PMX 1GM/50ML 50 ML IV SCH (09:08)
[2018-02-16] MEDS: AMIODARONE 200 MG TABLET PO SCH ×2 (09:08→20:52)
[2018-02-16] MEDS: PANTOPRAZOLE 40 MG IV IVPush SCH ×2 (09:09→20:52)
[2018-02-16] MEDS: CALCITRIOL 0.25 MCG CAPSULE PO SCH (09:09)
[2018-02-16] MEDS: RISPERIDONE 1 MG/ML ORAL SOLN PO SCH (09:09)
[2018-02-16] MEDS: INSULIN GLARGINE 100 UNITS/ML, PEN SQ-INSULIN SCH ×2 (09:16→20:41)
[2018-02-16] MEDS: DOXAZOSIN 2MG TABLET NG SCH (09:25)
[2018-02-16] MEDS ORDERED: PHENYLEPHRINE 80 MG in SODIUM CHLORIDE 0.9% 242 ML IV PRN (13:00)
[2018-02-16] MEDS: METOCLOPRAMIDE 5 MG/ML, 2ML IVPush SCH ×2 (17:40→21:48)
[2018-02-16] MEDS: SODIUM CHLORIDE FLUSH 10ML SYR IVF SCH ×2 (20:51→20:52)
[2018-02-16] MEDS: ATORVASTATIN 40 MG TABLET PO SCH (20:52)
[2018-02-16] MEDS: OXYcodone IR 5MG TABLET PO PRN (21:42)
[2018-02-17] MEDS: HEPARIN 5,000 UNITS/ML, 1ML SQ SCH ×3 (00:34→20:01)
[2018-02-17] MEDS: INSULIN LISPRO 100 UNITS/ML, PEN SQ-INSULIN SCH ×6 (00:53→20:26)
[2018-02-17] MEDS: ALBUTEROL/IPRATROPIUM 2.5MG/0.5MG, 3 ML INLINE SCH ×6 (02:30→22:21)
[2018-02-17 03:03] LABS: ANION GAP 15 mmol/L (5-15); CALCIUM 8.8 mg/dL (8.5-10.1); CHLORIDE 101 mmol/L (98-107); CREATININE 7.92 mg/dL (0.7-1.3)
[2018-02-17 03:10] LABS: BASOPHILS # (AUTO) 0.04 x10^3/uL (0-0.1); BASOPHILS % (AUTO) 1 % (0-1); EOSINOPHILS # (AUTO) 0.35 x10^3/uL (0-0.4); EOSINOPHILS % (AUTO) 7 % (1-7); LYMPHOCYTES # (AUTO) 0.95 x10^3/uL (1-3.4); LYMPHOCYTES % (AUTO) 18 % (22-44); MD NO; MEAN CORPUSCULAR HEMOGLOBIN 26.4 pg (27.5-34.5); MEAN CORPUSCULAR HGB CONC 32.3 g/dL (33.2-36.2); MEAN CORPUSCULAR VOLUME 81.8 fL (81-97); MEAN PLATELET VOLUME 9.9 fL (7.4-10.4); MONOCYTES # (AUTO) 0.53 x10^3/uL (0.2-0.8); MONOCYTES % (AUTO) 10 % (2-9); NEUTROPHILS # (AUTO) 3.44 x10^3/uL (1.8-6.8); NEUTROPHILS % (AUTO) 65 % (42-75); PLATELET COUNT 242 x10^3/uL (130-400); RED BLOOD COUNT 3.65 x10^6/uL (4.38-5.82)
[2018-02-17 04:00] VITALS: BP 128/61
[2018-02-17] MEDS: METOCLOPRAMIDE 5 MG/ML, 2ML IVPush SCH ×2 (04:11→11:53)
[2018-02-17] MEDS: METRONIDAZOLE PMX 500MG/100ML 100 ML IV SCH (05:44)
[2018-02-17] MEDS: BACITRACIN OINT 500U/GM, 15 GM TP SCH ×2 (09:00→21:18)
[2018-02-17] MEDS: ALBUMIN HUMAN 25% 50 ML IV PRN ×2 (09:06→10:20)
[2018-02-17] MEDS ORDERED: PHENYLEPHRINE 10 MG in SODIUM CHLORIDE 0.9% 249 ML IV PRN (09:30)
[2018-02-17] MEDS: INSULIN GLARGINE 100 UNITS/ML, PEN SQ-INSULIN SCH ×2 (10:13→20:26)
[2018-02-17] MEDS: CEFTRIAXONE PMX 1GM/50ML 50 ML IV SCH (11:49)
[2018-02-17] MEDS: CALCITRIOL 0.25 MCG CAPSULE PO SCH (11:50)
[2018-02-17] MEDS: CLOPIDOGREL 75 MG TABLET PO SCH (11:51)
[2018-02-17] MEDS: AMIODARONE 200 MG TABLET PO SCH ×2 (11:51→20:25)
[2018-02-17] MEDS: DOXAZOSIN 2MG TABLET NG SCH (11:52)
[2018-02-17] MEDS: PANTOPRAZOLE 40 MG IV IVPush SCH ×2 (11:52→20:25)
[2018-02-17] MEDS: SODIUM CHLORIDE FLUSH 10ML SYR IVF SCH ×2 (11:52→20:25)
[2018-02-17] MEDS: FENTANYL PF 100 MCG/2ML IVPush PRN (11:55)
[2018-02-17] MEDS: PHENYLEPHRINE 80 MG in SODIUM CHLORIDE 0.9% 242 ML IV PRN (14:47)
[2018-02-17] MEDS: ATORVASTATIN 40 MG TABLET PO SCH (20:25)
[2018-02-18] MEDS: PHENYLEPHRINE 80 MG in SODIUM CHLORIDE 0.9% 242 ML IV PRN (00:09)
[2018-02-18] MEDS: INSULIN LISPRO 100 UNITS/ML, PEN SQ-INSULIN SCH ×5 (01:00→22:54)
[2018-02-18] MEDS: ALBUTEROL/IPRATROPIUM 2.5MG/0.5MG, 3 ML INLINE SCH ×6 (02:21→22:17)
[2018-02-18 04:18] LABS: ANION GAP 11 mmol/L (5-15); CHLORIDE 102 mmol/L (98-107); CREATININE 6.48 mg/dL (0.7-1.3)
[2018-02-18] MEDS: HEPARIN 5,000 UNITS/ML, 1ML SQ SCH ×3 (04:49→21:08)
[2018-02-18 05:41] LABS: MEAN CORPUSCULAR HEMOGLOBIN 26.5 pg (27.5-34.5); MEAN CORPUSCULAR HGB CONC 32.3 g/dL (33.2-36.2); MEAN PLATELET VOLUME 9.8 fL (7.4-10.4); PLATELET COUNT 258 x10^3/uL (130-400); RED BLOOD COUNT 3.67 x10^6/uL (4.38-5.82); RED CELL DISTRIBUTION WIDTH 23.9 % (9.4-14.8)
[2018-02-18 06:03] LABS: BASOPHILS # (AUTO) 0.07 x10^3/uL (0-0.1); BASOPHILS % (AUTO) 1 % (0-1); EOSINOPHILS # (AUTO) 0.78 x10^3/uL (0-0.4); EOSINOPHILS % (AUTO) 11 % (1-7); LYMPHOCYTES # (AUTO) 1.37 x10^3/uL (1-3.4); LYMPHOCYTES % (AUTO) 19 % (22-44); MD SCAN; MONOCYTES % (AUTO) 12 % (2-9); NEUTROPHILS # (AUTO) 4.22 x10^3/uL (1.8-6.8); NEUTROPHILS % (AUTO) 58 % (42-75)
[2018-02-18] MEDS: BACITRACIN OINT 500U/GM, 15 GM TP SCH ×2 (09:00→21:10)
[2018-02-18] MEDS: PANTOPRAZOLE 40 MG IV IVPush SCH ×2 (09:25→21:08)
[2018-02-18] MEDS: CEFTRIAXONE PMX 1GM/50ML 50 ML IV SCH (09:25)
[2018-02-18] MEDS: SODIUM CHLORIDE FLUSH 10ML SYR IVF SCH ×2 (09:26→21:08)
[2018-02-18] MEDS: AMIODARONE 200 MG TABLET PO SCH ×2 (09:26→21:09)
[2018-02-18] MEDS: CALCITRIOL 0.25 MCG CAPSULE PO SCH (09:27)
[2018-02-18] MEDS: DOXAZOSIN 2MG TABLET NG SCH (09:27)
[2018-02-18] MEDS: CLOPIDOGREL 75 MG TABLET PO SCH (09:28)
[2018-02-18] MEDS: INSULIN GLARGINE 100 UNITS/ML, PEN SQ-INSULIN SCH ×2 (10:40→21:10)
[2018-02-18] MEDS: MIDODRINE 5 MG TABLET PO SCH ×2 (16:03→21:09)
[2018-02-18] MEDS ORDERED: INSU100I11 SQ-INSULIN (19:52)
[2018-02-18] MEDS ORDERED: ERGO500017 PO (19:52)
[2018-02-18] MEDS ORDERED: AMIO200T42 PO ×2 (19:52→20:25)
[2018-02-18] MEDS ORDERED: INSU100I13 SQ-INSULIN (19:52)
[2018-02-18] MEDS ORDERED: DOXA2TAB9 NG (19:52)
[2018-02-18] MEDS ORDERED: CALC0.25 PO (19:52)
[2018-02-18] MEDS ORDERED: MIDO5TAB PO (19:52)
[2018-02-18] MEDS ORDERED: DARB100V SQ (19:52)
[2018-02-18] MEDS ORDERED: BACI120O TP (19:52)
[2018-02-18] MEDS ORDERED: HEPA50002 SQ (19:59)
[2018-02-18] MEDS ORDERED: CEFT1VIA13 IVPB (19:59)
[2018-02-18] MEDS ORDERED: TRAM50TA2 PO (20:01)
[2018-02-18] MEDS: OXYcodone IR 5MG TABLET PO PRN (21:09)
[2018-02-18] MEDS: ATORVASTATIN 40 MG TABLET PO SCH (21:11)
[2018-02-19] MEDS: ALBUTEROL/IPRATROPIUM 2.5MG/0.5MG, 3 ML INLINE SCH ×4 (02:23→22:30)
[2018-02-19 03:39] LABS: MEAN CORPUSCULAR HEMOGLOBIN 26.4 pg (27.5-34.5); MEAN CORPUSCULAR HGB CONC 31.9 g/dL (33.2-36.2); MEAN CORPUSCULAR VOLUME 82.6 fL (81-97); PLATELET COUNT 278 x10^3/uL (130-400); RED CELL DISTRIBUTION WIDTH 23.5 % (9.4-14.8)
[2018-02-19 03:49] LABS: ANION GAP 16 mmol/L (5-15); CALCIUM 9.3 mg/dL (8.5-10.1); CHLORIDE 101 mmol/L (98-107); CREATININE 8.39 mg/dL (0.7-1.3); TRIGLYCERIDES 308 mg/dL (50-200)
[2018-02-19 04:22] LABS: BASOPHILS # (AUTO) 0.05 x10^3/uL (0-0.1); BASOPHILS % (AUTO) 1 % (0-1); EOSINOPHILS # (AUTO) 0.54 x10^3/uL (0-0.4); EOSINOPHILS % (AUTO) 8 % (1-7); LYMPHOCYTES # (AUTO) 1.42 x10^3/uL (1-3.4); LYMPHOCYTES % (AUTO) 21 % (22-44); MD SCAN; MONOCYTES % (AUTO) 15 % (2-9); NEUTROPHILS # (AUTO) 3.68 x10^3/uL (1.8-6.8); NEUTROPHILS % (AUTO) 55 % (42-75)
[2018-02-19] MEDS: HEPARIN 5,000 UNITS/ML, 1ML SQ SCH ×3 (04:33→21:30)
[2018-02-19] MEDS: INSULIN LISPRO 100 UNITS/ML, PEN SQ-INSULIN SCH ×4 (04:50→22:43)
[2018-02-19] MEDS: INSULIN GLARGINE 100 UNITS/ML, PEN SQ-INSULIN SCH ×2 (08:19→21:34)
[2018-02-19] MEDS: CEFTRIAXONE PMX 1GM/50ML 50 ML IV SCH (08:21)
[2018-02-19] MEDS: BACITRACIN OINT 500U/GM, 15 GM TP SCH ×2 (09:00→21:31)
[2018-02-19] MEDS: SODIUM CHLORIDE FLUSH 10ML SYR IVF SCH ×2 (09:00→21:30)
[2018-02-19] MEDS: PANTOPRAZOLE 40 MG IV IVPush SCH ×2 (09:34→21:30)
[2018-02-19] MEDS: CALCITRIOL 0.25 MCG CAPSULE PO SCH (09:34)
[2018-02-19] MEDS: DOXAZOSIN 2MG TABLET NG SCH (09:36)
[2018-02-19] MEDS: CLOPIDOGREL 75 MG TABLET PO SCH (09:36)
[2018-02-19] MEDS: AMIODARONE 200 MG TABLET PO SCH ×2 (09:36→21:31)
[2018-02-19] MEDS: ATORVASTATIN 40 MG TABLET PO SCH (21:31)
[2018-02-20] MEDS: ALBUTEROL/IPRATROPIUM 2.5MG/0.5MG, 3 ML INLINE SCH ×4 (02:30→15:00)
[2018-02-20] MEDS: INSULIN LISPRO 100 UNITS/ML, PEN SQ-INSULIN SCH ×3 (04:14→17:00)
[2018-02-20 04:28] LABS: MEAN CORPUSCULAR HEMOGLOBIN 26.1 pg (27.5-34.5); MEAN CORPUSCULAR HGB CONC 31.8 g/dL (33.2-36.2); MEAN CORPUSCULAR VOLUME 81.9 fL (81-97); MEAN PLATELET VOLUME 9.2 fL (7.4-10.4); PLATELET COUNT 282 x10^3/uL (130-400); RED CELL DISTRIBUTION WIDTH 23.7 % (9.4-14.8)
[2018-02-20 04:38] LABS: ANION GAP 17 mmol/L (5-15); CALCIUM 9.7 mg/dL (8.5-10.1); CHLORIDE 102 mmol/L (98-107); CREATININE 8.94 mg/dL (0.7-1.3)
[2018-02-20] MEDS: HEPARIN 5,000 UNITS/ML, 1ML SQ SCH ×2 (05:20→12:30)
[2018-02-20 05:58] LABS: BASOPHILS # (AUTO) 0.05 x10^3/uL (0-0.1); BASOPHILS % (AUTO) 1 % (0-1); EOSINOPHILS # (AUTO) 0.68 x10^3/uL (0-0.4); EOSINOPHILS % (AUTO) 10 % (1-7); LYMPHOCYTES % (AUTO) 21 % (22-44); MD SCAN; MONOCYTES # (AUTO) 0.88 x10^3/uL (0.2-0.8); MONOCYTES % (AUTO) 12 % (2-9); NEUTROPHILS # (AUTO) 4.06 x10^3/uL (1.8-6.8); NEUTROPHILS % (AUTO) 57 % (42-75)
[2018-02-20] MEDS ORDERED: AMIODARONE 200 MG TABLET PO SCH (09:00)
[2018-02-20] MEDS: ALBUMIN HUMAN 25% 50 ML IV PRN ×2 (09:37→11:02)
[2018-02-20] MEDS ORDERED: CEFTRIAXONE PMX 1GM/50ML 50 ML IV SCH (10:00)
[2018-02-20] MEDS: CALCITRIOL 0.25 MCG CAPSULE PO SCH (12:07)
[2018-02-20] MEDS: CLOPIDOGREL 75 MG TABLET PO SCH (12:08)
[2018-02-20] MEDS: DOXAZOSIN 2MG TABLET NG SCH (12:09)
[2018-02-20] MEDS: PANTOPRAZOLE 40 MG IV IVPush SCH (12:10)
[2018-02-20] MEDS: SODIUM CHLORIDE FLUSH 10ML SYR IVF SCH (12:10)
[2018-02-20] MEDS: BACITRACIN OINT 500U/GM, 15 GM TP SCH (12:11)
[2018-02-20] MEDS: INSULIN GLARGINE 100 UNITS/ML, PEN SQ-INSULIN SCH (12:13)
[2018-02-20] MEDS ORDERED: LIDOCAINE/PF 1%, 30ML ONE (13:46)
[2018-02-20] MEDS ORDERED: LIDOCAINE-MPF 1%, 5ML ONE ×2 (13:46→14:39)
[2018-02-20] MEDS ORDERED: FENTANYL PF 100 MCG/2ML ONE (13:48)
[2018-02-20] MEDS ORDERED: MIDAZOLAM 1 MG/ML, 5ML ONE (13:48)
== END 2018-02-20 21:49 | DRG 3 ==
LOC: 5SO 03:29 → CSU 08:09 → CCU 01-26 07:25
PROVIDERS: ADMIT Thoracic Surgery (Cardiothoracic Vascular Surgery); ATTEND Thoracic Surgery (Cardiothoracic Vascular Surgery)
PROC: 021009W Bypass Coronary Artery, One Artery from Aorta with Autologous Venous Tissue, Open Approach (ICD-10-PCS; 2018-01-23)
PROC: 06BP4ZZ Excision of Right Saphenous Vein, Percutaneous Endoscopic Approach (ICD-10-PCS; 2018-01-23)
PROC: 5A1221Z Performance of Cardiac Output, Continuous (ICD-10-PCS; 2018-01-23)
PROC: B24BZZ4 Ultrasonography of Heart with Aorta, Transesophageal (ICD-10-PCS; 2018-01-23)
PROC: 02100Z9 Bypass Coronary Artery, One Artery from Left Internal Mammary, Open Approach (ICD-10-PCS; principal; 2018-01-23 08:00)
PROC: 0DH67UZ Insertion of Feeding Device into Stomach, Via Natural or Artificial Opening (ICD-10-PCS; 2018-01-24)
PROC: 30233R1 Transfusion of Nonautologous Platelets into Peripheral Vein, Percutaneous Approach (ICD-10-PCS; 2018-01-26)
PROC: 5A1955Z Respiratory Ventilation, Greater than 96 Consecutive Hours (ICD-10-PCS; 2018-01-27)
PROC: 0BH18EZ Insertion of Endotracheal Airway into Trachea, Via Natural or Artificial Opening Endoscopic (ICD-10-PCS; 2018-01-27)
PROC: 5A2204Z Restoration of Cardiac Rhythm, Single (ICD-10-PCS; 2018-01-27)
PROC: 02HV33Z Insertion of Infusion Device into Superior Vena Cava, Percutaneous Approach (ICD-10-PCS; 2018-02-02)
PROC: B548ZZA Ultrasonography of Superior Vena Cava, Guidance (ICD-10-PCS; 2018-02-02)
PROC: 5A1D70Z Performance of Urinary Filtration, Intermittent, Less than 6 Hours Per Day (ICD-10-PCS; 2018-02-02)
PROC: 0B110F4 Bypass Trachea to Cutaneous with Tracheostomy Device, Open Approach (ICD-10-PCS; 2018-02-03)
PROC: 5A1955Z Respiratory Ventilation, Greater than 96 Consecutive Hours (ICD-10-PCS; 2018-02-03)
PROC: 30233N1 Transfusion of Nonautologous Red Blood Cells into Peripheral Vein, Percutaneous Approach (ICD-10-PCS; 2018-02-03)
PROC: 5A1D70Z Performance of Urinary Filtration, Intermittent, Less than 6 Hours Per Day (ICD-10-PCS; 2018-02-03)
PROC: 5A1D70Z Performance of Urinary Filtration, Intermittent, Less than 6 Hours Per Day (ICD-10-PCS; 2018-02-04)
PROC: 5A1D70Z Performance of Urinary Filtration, Intermittent, Less than 6 Hours Per Day (ICD-10-PCS; 2018-02-05)
PROC: 5A1D70Z Performance of Urinary Filtration, Intermittent, Less than 6 Hours Per Day (ICD-10-PCS; 2018-02-06)
PROC: 5A1D70Z Performance of Urinary Filtration, Intermittent, Less than 6 Hours Per Day (ICD-10-PCS; 2018-02-07)
PROC: 5A1D70Z Performance of Urinary Filtration, Intermittent, Less than 6 Hours Per Day (ICD-10-PCS; 2018-02-08)
PROC: 5A1D70Z Performance of Urinary Filtration, Intermittent, Less than 6 Hours Per Day (ICD-10-PCS; 2018-02-09)
PROC: 5A1D70Z Performance of Urinary Filtration, Intermittent, Less than 6 Hours Per Day (ICD-10-PCS; 2018-02-10)
PROC: 5A1D70Z Performance of Urinary Filtration, Intermittent, Less than 6 Hours Per Day (ICD-10-PCS; 2018-02-11)
PROC: 02HV33Z Insertion of Infusion Device into Superior Vena Cava, Percutaneous Approach (ICD-10-PCS; 2018-02-13)
PROC: B5181ZA Fluoroscopy of Superior Vena Cava using Low Osmolar Contrast, Guidance (ICD-10-PCS; 2018-02-13)
PROC: B548ZZA Ultrasonography of Superior Vena Cava, Guidance (ICD-10-PCS; 2018-02-13)
PROC: 5A1D70Z Performance of Urinary Filtration, Intermittent, Less than 6 Hours Per Day (ICD-10-PCS; 2018-02-13)
PROC: 5A1D70Z Performance of Urinary Filtration, Intermittent, Less than 6 Hours Per Day (ICD-10-PCS; 2018-02-15)
PROC: 5A1D70Z Performance of Urinary Filtration, Intermittent, Less than 6 Hours Per Day (ICD-10-PCS; 2018-02-17)
PROC: 5A1D70Z Performance of Urinary Filtration, Intermittent, Less than 6 Hours Per Day (ICD-10-PCS; 2018-02-18)
PROC: 0JH63XZ Insertion of Tunneled Vascular Access Device into Chest Subcutaneous Tissue and Fascia, Percutaneous Approach (ICD-10-PCS; 2018-02-20)
PROC: 02HV33Z Insertion of Infusion Device into Superior Vena Cava, Percutaneous Approach (ICD-10-PCS; 2018-02-20)
PROC: B5181ZA Fluoroscopy of Superior Vena Cava using Low Osmolar Contrast, Guidance (ICD-10-PCS; 2018-02-20)
PROC: B548ZZA Ultrasonography of Superior Vena Cava, Guidance (ICD-10-PCS; 2018-02-20)
PROC: 5A1D70Z Performance of Urinary Filtration, Intermittent, Less than 6 Hours Per Day (ICD-10-PCS; 2018-02-20)
DX: I25.119 Atherosclerotic heart disease of native coronary artery with unspecified angina pectoris (principal); I50.41 Acute combined systolic (congestive) and diastolic (congestive) heart failure; A41.9 Sepsis, unspecified organism; J96.01 Acute respiratory failure with hypoxia; J69.0 Pneumonitis due to inhalation of food and vomit; J96.02 Acute respiratory failure with hypercapnia; J98.11 Atelectasis; Z99.11 Dependence on respirator [ventilator] status; N17.9 Acute kidney failure, unspecified; D62 Acute posthemorrhagic anemia; K56.7 Ileus, unspecified; D68.59 Other primary thrombophilia; E46 Unspecified protein-calorie malnutrition; E87.2 Acidosis; E87.1 Hypo-osmolality and hyponatremia; G93.40 Encephalopathy, unspecified; J93.9 Pneumothorax, unspecified; R44.3 Hallucinations, unspecified; I13.0 Hypertensive heart and chronic kidney disease with heart failure and stage 1 through stage 4 chronic kidney disease, or unspecified chronic kidney disease; I48.91 Unspecified atrial fibrillation; E11.21 Type 2 diabetes mellitus with diabetic nephropathy; E11.22 Type 2 diabetes mellitus with diabetic chronic kidney disease; I34.0 Nonrheumatic mitral (valve) insufficiency; E11.65 Type 2 diabetes mellitus with hyperglycemia; D63.8 Anemia in other chronic diseases classified elsewhere; I25.5 Ischemic cardiomyopathy; E78.1 Pure hyperglyceridemia; K44.9 Diaphragmatic hernia without obstruction or gangrene; N40.0 Benign prostatic hyperplasia without lower urinary tract symptoms; E83.51 Hypocalcemia; E78.5 Hyperlipidemia, unspecified; N05.9 Unspecified nephritic syndrome with unspecified morphologic changes; E66.9 Obesity, unspecified; N18.3 Chronic kidney disease, stage 3 (moderate); B96.20 Unspecified Escherichia coli [E. coli] as the cause of diseases classified elsewhere; F41.9 Anxiety disorder, unspecified; B96.1 Klebsiella pneumoniae [K. pneumoniae] as the cause of diseases classified elsewhere; Z88.2 Allergy status to sulfonamides; Z68.31 Body mass index [BMI] 31.0-31.9, adult; Z95.5 Presence of coronary angioplasty implant and graft; Z79.4 Long term (current) use of insulin; Z87.891 Personal history of nicotine dependence; Z86.73 Personal history of transient ischemic attack (TIA), and cerebral infarction without residual deficits; Z79.82 Long term (current) use of aspirin; Z82.5 Family history of asthma and other chronic lower respiratory diseases; Z99.2 Dependence on renal dialysis; I95.9 Hypotension, unspecified
CPT/HCPCS: 31502; 36415; 36556; 36558; 36569; 36600; 71045; 71046; 74018; 76604; 76770; 76937; 77001; 80048; 80053; 80202; 81001; 82040; 82306; 82310; 82330; 82436; 82533; 82570; 82728; 82800; 82803; 82810; 82947; 82962; 83036; 83540; 83550; 83735; 83880; 83935; 83970; 84100; 84132; 84133; 84156; 84295; 84300; 84478; 84550; 85014; 85018; 85025; 85045; 85049; 85347; 85520; 85610; 85730; 86705; 86706; 86850; 86900; 86923; 87040; 87070; 87077; 87081; 87086; 87186; 87205; 87340; 93005; 93308; 93312; 93320; 93325; 94002; 94003; 94640; 99156; 99157; G0378; J0295; J0696; J0881; J1265; J1644; J1650; J1756; J1815; J1940; J2250; J2405; J2543; J2704; J2720; J3010; J3370; J3475; J3480; J3490; J7620; P9045; P9047; C1750; C1751; C1760; C9113; J0171; J0282; J0360; J0780; J1160; J1630; J1642; J2060; J2270; J2370; J2440; J2765; J7040; J7050; J7060; P9016; P9035; S0028